=== PATIENT | female | born 1935 | race Caucasian/White ===

== ENCOUNTER 2017-02-06 08:18 | Inpatient (IN) | payer MEDICARE, BC ==
[2017-02-06] VITALS (7 sets, daily range): BP systolic 128–155; BP diastolic 59–90; PULSE 61–76; RESP 16–18; TEMP 97.7–99.6; O2SAT 97–100
[~2017-02-06] VITALS: Ht 162.6 cm; Wt 84.4 kg
[~2017-02-06 08:18] MED LIST: HYDR10FO PR; LISI-357 PO; SIMV20TA OR
[2017-02-06] MEDS ORDERED: ONDANSETRON HCL 4 MG/2 ML VIAL IV ONE (08:30)
[2017-02-06] MEDS ORDERED: HYDROmorphone HCL PF 1 MG/ML VIAL IVS ONE ×3 (08:30→10:30)
--- NOTE | 2017-02-06 08:41 | PD ---
HPI Chief Complaint: Fall Time Seen by Provider: 08:25 Travel History International Travel<30 days: No Contact w/Intl Traveler<30days: No History of Present Illness HPI Relatively well 81-year-old woman who presents to the emergency department via EMS after trip and fall complaining of pain and deformity to left wrist, severe pain in the left hip, and a small abrasion to her left face. She otherwise is fairly healthy. She is a history of hypertension. She's had right shoulder surgery in the past. She is not on any blood thinners. No LOC. She otherwise had been feeling generally well and healthy prior to this. History Past Medical History Narrative Medical Hypertension Menopausal: Yes Social History Alcohol Use: Yes (OCCASSIONAL) Tobacco Use: No Allergies-Medications (Allergen,Severity, Reaction): Coded Allergies: No Known Allergies (Verified , 03/20/14) Reported Meds & Prescriptions Reported Meds & Active Scripts Active Proctofoam Hc Rectal Foam (Hydrocortisone/Pramoxine) 10 Applic/10 Gm Foam 10 Applic GA BID Reported Lisinopril 5 Mg Tab 5 Mg PO DAILY Simvastatin 20 Mg Tab 20 Mg OR HS Review of Systems Except as stated in HPI: all other systems reviewed are Neg Physical Exam Narrative GENERAL: 81 year-old woman, appears uncomfortable, on a scoop stretcher. SKIN: Focused skin assessment warm/dry. HEAD: Normocephalic. 2 small very superficial cuts to the left brow. No other obvious head injury. EYES: Pupils equal and round. No scleral icterus. No injection or drainage. ENT: No nasal bleeding or discharge. Mucous membranes pink and moist. NECK: No midline tenderness. Full range of motion. CARDIOVASCULAR: Regular rate and rhythm. No murmur appreciated. RESPIRATORY: No accessory muscle use. Clear to auscultation. Breath sounds equal bilaterally. GASTROINTESTINAL: Abdomen soft, non-tender, nondistended. Hepatic and splenic margins not palpable. MUSCULOSKELETAL: She has obvious deformity and swelling to the left wrist with volar displacement of the distal section. She has pain with palpation of the wrist. She also has severe pain in the left leg rate from the hip down to the knee. She holds left knee flexed. She resists any attempt to move the hip or the knee. There is no obvious pain with palpation of the knee or deformity or ecchymosis the knee itself. The ankle is unremarkable. NEUROLOGICAL: Awake and alert. No obvious cranial nerve deficits. Motor grossly within normal limits. Normal speech. PSYCHIATRIC: Appropriate mood and affect; insight and judgment normal. Data Data Last Documented VS Vital Signs Date Time Temp Pulse Resp B/P Pulse Ox O2 Delivery O2 Flow Rate FiO2 02/06/17 09:30 100 02/06/17 09:30 100 02/06/17 08:48 62 18 Room Air 02/06/17 08:48 149/90 02/06/17 08:44 97.7 Orders Hydromorphone Pf Inj (Dilaudid Pf Inj) (02/06/17 08:30) Ondansetron Inj (Zofran Inj) (02/06/17 08:30) Electrocardiogram (02/06/17 08:35) Complete Blood Count With Diff (02/06/17 08:35) Comprehensive Metabolic Panel (02/06/17 08:35) Prothrombin Time / Inr (Pt) (02/06/17 08:35) Act Partial Throm Time (Ptt) (02/06/17 08:35) Urinalysis - C+S If Indicated (02/06/17 08:35) Type And Screen (02/06/17 08:35) Chest, Single Ap (02/06/17 08:35) Iv Access Insert/Monitor (02/06/17 08:35) Urinary Catheter Insert/Apply (02/06/17 08:35) Oximetry (02/06/17 08:35) [employer] Request For Service (02/06/17 08:35) Ecg Monitoring (02/06/17 08:35) Sodium Chloride 0.9% Flush (Ns Flush) (02/06/17 08:45) Diet Npo (02/06/17 Breakfast) Wrist, Limited (Ap&Lat) (02/06/17 ) Ct Brain W/O Iv Contrast(Rout) (02/06/17 ) Propofol 200 Mg/20 Ml Inj (Diprivan 200 (02/06/17 09:00) Hip, Uni(Ap&Lat) Wo Ap Pelvis (02/06/17 ) Pelvis, Ap Only (Routine) (02/06/17 ) Femur, One View (02/06/17 08:35) Wrist, Limited (Ap&Lat) (02/06/17 ) Ct Cerv Spine W/O Contrast (02/06/17 ) Hydromorphone Pf Inj (Dilaudid Pf Inj) (02/06/17 10:15) Admit Order (Ed Use Only) (02/06/17 ) Sodium Chlor 0.9% 1000 Ml Inj (Ns 1000 M (02/06/17 11:00) Vital Signs (Adult) SHUKRI.Q4H (02/06/17 10:12) Consult Orthopedic (02/06/17 ) Hydromorphone Pf Inj (Dilaudid Pf Inj) (02/06/17 10:15) Ondansetron Inj (Zofran Inj) (02/06/17 10:15) Labs Laboratory Tests Test 02/06/17 08:40 White Blood Count 5.4 TH/MM3 Red Blood Count 4.84 MIL/MM3 Hemoglobin 14.5 GM/DL Hematocrit 42.9 % Mean Corpuscular Volume 88.6 FL Mean Corpuscular Hemoglobin 29.9 PG Mean Corpuscular Hemoglobin 33.8 % Concent Red Cell Distribution Width 13.3 % Platelet Count 186 TH/MM3 Mean Platelet Volume 9.4 FL Neutrophils (%) (Auto) 64.9 % Lymphocytes (%) (Auto) 22.5 % Monocytes (%) (Auto) 11.3 % Eosinophils (%) (Auto) 1.0 % Basophils (%) (Auto) 0.3 % Neutrophils # (Auto) 3.5 TH/MM3 Lymphocytes # (Auto) 1.2 TH/MM3 Monocytes # (Auto) 0.6 TH/MM3 Eosinophils # (Auto) 0.1 TH/MM3 Basophils # (Auto) 0.0 TH/MM3 CBC Comment DIFF FINAL Differential Comment Prothrombin Time 10.5 SEC Prothromb Time International 1.0 RATIO Ratio Activated Partial 26.9 SEC Thromboplast Time Sodium Level 144 MEQ/L Potassium Level 3.9 MEQ/L Chloride Level 109 MEQ/L Carbon Dioxide Level 26.5 MEQ/L Anion Gap 9 MEQ/L Blood Urea Nitrogen 16 MG/DL Creatinine 0.81 MG/DL Estimat Glomerular Filtration 68 ML/MIN Rate Random Glucose 133 MG/DL Calcium Level 8.7 MG/DL Total Bilirubin 0.6 MG/DL Aspartate Amino Transf 19 U/L (AST/SGOT) Alanine Aminotransferase 17 U/L (ALT/SGPT) Alkaline Phosphatase 79 U/L Total Protein 6.3 GM/DL Albumin 3.4 GM/DL Blood Type O NEGATIVE Antibody Screen NEGATIVE Blood Bank Comment MDM Medical Decision Making Medical Screen Exam Complete: Yes Emergency Medical Condition: Yes Interpretation(s) LABS: CBC is unremarkable. CMP is unremarkable. Coags unremarkable Left wrist x-ray: Impacted distal radius fracture for angulation of the distal fragment. Nondisplaced faintly seen distal ulna fracture. X-ray pelvis, left femur: Impacted femoral neck fracture on the left. CT head: 4 cm left frontal extra-axial mass with them for full calcification. 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 Associated mass effect and no midline shift. Recommend MRI brain with and without contrast. Differential Diagnosis Head injury, wrist fracture, hip fracture, femur fracture, other occult injury Narrative Course Medical decision making INITIAL cause an 81 year-old woman presents emergent arm on a trip and fall. She has obvious fracture to the left wrist, likely fracture to the left hip. She received 10 of morphine in route. She still in significant pain. She'll be given IV Dilaudid, Zofran, will check CT head, x-ray chest, left wrist, pelvis, left hip, left femur. She'll likely need sedation for reduction of the wrist, and placement of the hip in traction. We'll discuss with orthopedics following initial x-rays. Procedures Procedure Narrative After the risks and benefits were discussed the following procedure was performed: MODERATE SEDATION: The patient was placed on a nail assembly machine operator and pulse oximetry. An ambu bag and suction was immediately available at bedside. The patient was monitored by the nurse. Oxygen saturation, heart rate and blood pressure were monitored. Procedural sedation was acheived using 60 mg of propofol. The patient was observed until awake and alert. Procedural Sedation time in attendance was 15 minutes. Left wrist reduction: Following procedural sedation, axial traction and some direct pressure were used to reduce the left wrist. Sugar tong splint was placed. Repeat films were obtained. Diagnosis Primary Impression: Fracture of femoral neck, left, closed Qualified Code: S72.002A - Closed fracture of neck of left femur, initial encounter Additional Impression: Closed fracture of left distal radius and ulna Qualified Code: S52.502A - Closed fracture of left distal radius and ulna, initial encounter Admitting Information Admitting Physician Requests: Admit Isaac Gonzalez MD Feb 06, 2017 08:41 Admitting Information Admitting Physician Requests: Admit Isaac Gonzalez MD Feb 06, 2017 08:41
[2017-02-06] MEDS ORDERED: SODIUM CHLORIDE 0.9% FLUSH 10 ML FLUSH IVF PRN (08:45)
[2017-02-06 08:55] LABS: AUTOMATED NEUTROPHIL # 3.5 TH/MM3 (1.8-7.7); BASOPHIL % 0.3 % (0.0-2.0); EOSINOPHIL # 0.1 TH/MM3 (0-0.4); HEMATOCRIT 42.9 % (35.0-46.0); HEMO FLAGS DIFF FINAL; LYMPH % 22.5 % (9.0-44.0); LYMPHOCYTE # 1.2 TH/MM3 (1.0-4.8); MEAN CELL VOLUME 88.6 FL (80.0-100.0); MEAN CORPUSCULAR HEMOGLOBIN 29.9 PG (27.0-34.0); MEAN CORPUSCULAR HGB CONC 33.8 % (32.0-36.0); MONO % 11.3 % (0.0-8.0); NEUT % 64.9 % (16.0-70.0); PLATELET COUNT 186 TH/MM3 (150-450); RED BLOOD COUNT 4.84 MIL/MM3 (4.00-5.30); RED CELL DISTRIBUTION WIDTH 13.3 % (11.6-17.2); WHITE BLOOD COUNT 5.4 TH/MM3 (4.0-11.0)
[2017-02-06] MEDS ORDERED: PROPOFOL 200 MG/20 ML AMP IV ONE ×2 (09:00→09:21)
[2017-02-06 09:08] LABS: APTT (PATIENT) 26.9 SEC (24.3-30.1); PROTHROMBIN TIME - PATIENT 10.5 SEC (9.8-11.6)
[2017-02-06] MEDS ORDERED: ePHEDrine/NS 25 MG/5 ML SYR IV ONE (09:21)
[2017-02-06 09:22] LABS: ALKALINE PHOSPHATASE 79 U/L (45-117); ALT (GPT) 17 U/L (10-53); ANION GAP 9 MEQ/L (5-15); AST (GOT) 19 U/L (15-37); BICARBONATE 26.5 MEQ/L (21.0-32.0); BLOOD UREA NITROGEN 16 MG/DL (7-18); CHLORIDE 109 MEQ/L (98-107); GLOMERULAR FILTRATION RATE 68 ML/MIN (>89); POTASSIUM 3.9 MEQ/L (3.5-5.1); SODIUM (NA) 144 MEQ/L (136-145); TOTAL BILIRUBIN ADULT 0.6 MG/DL (0.2-1.0)
[2017-02-06] MEDS ORDERED: PHENYLEPH/NS 1000 MCG/10 ML SYR IV ONE (09:22)
[2017-02-06] MEDS ORDERED: LACTATED RINGER'S 1000 ML INJ 1,000 ML IV ONE (09:22)
[2017-02-06] MEDS ORDERED: ONDANSETRON HCL 4 MG/2 ML VIAL IV PUSH ONE (09:22)
--- NOTE | 2017-02-06 09:37 | RADRPT ---
EXAM DATE/TIME: 02/06/2017 09:02 [facility] COMPARISON: No previous studies available for comparison. INDICATIONS : Fall. Left wrist deformity. MEDICAL HISTORY : None. SURGICAL HISTORY : None. ENCOUNTER: Initial ACUITY: 1 day PAIN SCORE: 10/10 LOCATION: Left wrist FINDINGS: 2 views of the left wrist. Impacted fracture of the distal radius with 23 volar angulation of the di stal fragment. Approximately 8 mm bony overlap. Grossly nondisplaced distal ulnar fracture with faint longitudinal lucency through the distal ulna and 1 mm step off in the distal ulna 3 mm lateral to th e ulnar styloid. CONCLUSION: 1. Impacted distal radius fracture with volar angulation of the distal fragment. 2. Nondisplaced, faintly seen distal ulna fracture. Ed Guerra MD on February 06, 2017 at 9:32 Board Certified Radiologist. This report was verified electronically.
--- NOTE | 2017-02-06 09:40 | RADRPT ---
EXAM DATE/TIME: 02/06/2017 09:12 [facility] COMPARISON: No previous studies available for comparison. INDICATIONS : Fall. Left hip pain. MEDICAL HISTORY : None. SURGICAL HISTORY : None. ENCOUNTER: Initial ACUITY: 1 day PAIN SCORE: 10/10 LOCATION: Left hip FINDINGS: 3 views of the left femur. Impacted left femoral neck fracture. Mid to distal femur are intact. CONCLUSION: Impacted left femoral neck fracture. Ed Guerra MD on February 06, 2017 at 9:37 Board Certified Radiologist. This report was verified electronically.
--- NOTE | 2017-02-06 09:45 | RADRPT ---
EXAM DATE/TIME: 02/06/2017 09:12 [facility] COMPARISON: No previous studies available for comparison. INDICATIONS : Fall. Left hip pain. MEDICAL HISTORY : None. SURGICAL HISTORY : None. ENCOUNTER: Initial ACUITY: 1 day PAIN SCORE: 10/10 LOCATION: Left hip FINDINGS: Single AP view of the pelvis. Impacted left femoral neck fracture. Hip joint alignment within normal limits. CONCLUSION: Impacted left femoral neck fracture. Ed Guerra MD on February 06, 2017 at 9:40 Board Certified Radiologist. This report was verified electronically.
[2017-02-06] MEDS ORDERED: HYDROmorphone HCL PF 1 MG/ML VIAL IV PUSH PRN (10:15)
[2017-02-06] MEDS ORDERED: ONDANSETRON HCL 4 MG/2 ML VIAL IV PUSH PRN (10:15)
--- NOTE | 2017-02-06 10:42 | RADRPT ---
EXAM DATE/TIME: 02/06/2017 09:59 [facility] COMPARISON: No previous studies available for comparison. INDICATIONS : Patient had a fall today ,No Loss of contiousness, laceration to left side of head. RADIATION DOSE: 32.37 CTDIvol (mGy) MEDICAL HISTORY : Cardiovascular disease. Hypertension. SURGICAL HISTORY : Tonsillectomy. Appendectomy.Hysterectomy. ENCOUNTER: Initial ACUITY: 1 day PAIN SCALE: 5/10 LOCATION: cranial TECHNIQUE: Multiple contiguous axial images were obtained of the head. Using automated exposure control and adj ustment of the mA and/or kV according to patient size, radiation dose was kept as low as reasonably a chievable to obtain optimal diagnostic quality images. FINDINGS: CEREBRUM: There is a 4.3 x 3.4 cm mildly hyperdense extra axial mass with peripheral rim calcification in the l ateral right frontal region. There is resulting mass effect on the right frontal lobe. No vasogenic e sheri is seen. There is mass effect on the anterior horn of the right lateral ventricle. No midline sh ift. No evidence of acute hemorrhage. POSTERIOR FOSSA: The cerebellum and brainstem are intact. The 4th ventricle is midline. The cerebellopontine angle i s unremarkable. EXTRACRANIAL: The visualized portion of the orbits is intact. SKULL: The calvaria is intact. No evidence of skull fracture. CONCLUSION: 4 cm left frontal extra-axial mass with thin peripheral calcification. 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 There is associated mass effect but no midline shift. Recommen d MRI brain with and without contrast for further characterization. Ed Guerra MD on February 06, 2017 at 10:34 Board Certified Radiologist. This report was verified electronically.
[2017-02-06] MEDS: SODIUM CHLOR 0.9% 1000 ML INJ 1,000 ML IV SCH ×2 (11:00→17:02)
--- NOTE | 2017-02-06 11:00 | RADRPT ---
EXAM DATE/TIME: 02/06/2017 10:35 [facility] COMPARISON: WRIST LEFT LIMITED (AP & LAT), February 06, 2017, 9:02. INDICATIONS : Post reduction. MEDICAL HISTORY : None. SURGICAL HISTORY : None. ENCOUNTER: Subsequent ACUITY: 1 day PAIN SCORE: 10/10 LOCATION: Left Wrist FINDINGS: There is closed reduction of the comminuted fracture of the distal radius with buddhist of anatomi c alignment. Fiberglas cast is in place. CONCLUSION: 1. Uncomplicated reduction Yonathan Pereira MD on February 06, 2017 at 10:58 Board Certified Radiologist. This report was verified electronically.
--- NOTE | 2017-02-06 11:03 | RADRPT ---
EXAM DATE/TIME: 02/06/2017 10:32 [facility] COMPARISON: CHEST SINGLE AP, February 25, 2011, 13:44. INDICATIONS : Shortness of breath. MEDICAL HISTORY : Cardiovascular disease. Hypertension SURGICAL HISTORY : Tonsillectomy. Appendectomy. Hysterectomy. ENCOUNTER: Subsequent ACUITY: 1 day PAIN SCORE: 1/10 LOCATION: Bilateral chest FINDINGS: A single view of the chest demonstrates the lungs to be symmetrically aerated without evidence of mas s, infiltrate or effusion. There is a subtle nodular density at the right second costochondral juncti on. This is not felt to relate to parenchymal nodule. The heart is mildly enlarged. An old right milagros ral neck fracture with orthopedic plate. CONCLUSION: No acute disease. Neftaly Tyson Jr., MD on February 06, 2017 at 10:57 Board Certified Radiologist. This report was verified electronically.
--- NOTE | 2017-02-06 11:12 | RADRPT ---
EXAM DATE/TIME: 02/06/2017 09:59 [facility] COMPARISON: No previous studies available for comparison. INDICATIONS : Patient fell today , no loss of constiousness, laceration to left side of head RADIATION DOSE: 20.47 CTDIvol (mGy) MEDICAL HISTORY : Hypertension. Cardiovascular disease SURGICAL HISTORY : Appendectomy. Hysterectomy.Tonsillectomy. ENCOUNTER: Initial ACUITY: 1 day PAIN SCALE: 10/10 LOCATION: neck TECHNIQUE: Volumetric scanning of the cervical spine was performed. Multiplanar reconstructions in the sagittal, coronal and oblique axial planes were performed. Using automated exposure control and adjustment o f the mA and/or kV according to patient size, radiation dose was kept as low as reasonably achievable to obtain optimal diagnostic quality images. FINDINGS: VERTEBRAE: No evidence of fracture. ALIGNMENT: 2 mm anterolisthesis C2 on C3. 2 mm anterolisthesis C7 on T1. C2-C3: Bilateral facet arthrosis. Shallow central disc protrusion. Mild central canal narrowing. Neural fora kelly diameters within normal limits. C3-C4: Broad-based disc bulge and bilateral facet arthrosis. Mild central canal narrowing. Mild left neural foraminal narrowing. C4-C5: Broad-based disc osteophyte complex and bilateral facet arthrosis. Mild central canal narrowing. Mild right neural foraminal narrowing. C5-C6: Broad-based disc osteophyte complex. Mild to moderate central canal narrowing. Mild to moderate bilat eral neural foraminal narrowing. C6-C7: Broad-based disc bulge. Bilateral facet arthrosis. Moderate to severe left neural foraminal narrowing . Moderate right neural foraminal narrowing. Mild central canal narrowing. C7-T1: Bilateral facet arthrosis. No evidence of focal disc protrusion. Central canal normal diameter. Neura l foraminal diameters within normal limits. CONCLUSION: No evidence of fracture. Multilevel degenerative findings. Ed Guerra MD on February 06, 2017 at 11:00 Board Certified Radiologist. This report was verified electronically.
--- NOTE | 2017-02-06 11:16 | RADRPT ---
EXAM DATE/TIME: 02/06/2017 09:12 [facility] COMPARISON: PELVIS AP ONLY, February 06, 2017, 9:12. INDICATIONS : Fall MEDICAL HISTORY : Cardiovascular disease. SURGICAL HISTORY : None. ENCOUNTER: Subsequent ACUITY: 1 day PAIN SCORE: 10/10 LOCATION: Left Hip FINDINGS: 2 views left hip. Left femoral neck fracture again seen. Hip joint alignment within normal limits. Sm all left hip osteophytes. CONCLUSION: Left femoral neck fracture. Ed Guerra MD on February 06, 2017 at 11:12 Board Certified Radiologist. This report was verified electronically.
[2017-02-06] MEDS ORDERED: NEOSTIGMINE 3 MG/3 ML SYR IV ONE (12:00)
[2017-02-06] MEDS ORDERED: LISI-519 PO (12:49)
[2017-02-06] MEDS ORDERED: SIMV20TA PO (12:49)
--- NOTE | 2017-02-06 12:57 | HHI.HP ---
[facility] Em Pham MD Admission Diagnosis left femoral neck fracture, left distal radius, ulna fracture Diagnoses: (1) Fracture of femoral neck, left, closed (2) Closed fracture of left distal radius and ulna Chief Complaint: fall Travel History International Travel<30 Days: No Contact w/Intl Traveler <30 Da: No Traveled to Known Affected Are: No History of Present Illness patient is a 81 y/o female with history of hypertension and dyslipidemia who was brought to ER after she fell earlier today. she says that she tripped and fell. she denies any prodromal symptoms before the fall including chest pain, sob, dizziness. she doesn't remember if she passed out. she's complaining of pain to the left leg and left wrist. Review of Systems Constitutional: DENIES: Fever, Weight loss, Chills, Night Sweats Eyes: DENIES: Blurred vision, Diplopia, Vision loss, Double Vision Ears, nose, mouth, throat: DENIES: Tinnitus, Vertigo, Throat pain, Epistaxis Respiratory: DENIES: Apneas, Cough, Snoring, Wheezing, Hemoptysis, Sputum production, Shortness of breath Cardiovascular: DENIES: Chest pain, Palpitations, Syncope, Dyspnea on Exertion , PND, Lower Extremity Edema, Orthopnea, Claudication Gastrointestinal: DENIES: Abdominal pain, Black stools, Bloody stools, Constipation, Diarrhea, Nausea, Vomiting, Difficulty Swallowing, Anorexia Genitourinary: DENIES: Urinary frequency, Urgency, Hematuria, Dysuria Musculoskeletal: COMPLAINS OF: Joint pain (left hip/ left wrist.), DENIES: Muscle aches, Stiffness, Joint Swelling Integumentary: DENIES: Rash Neurologic: DENIES: Abnormal gait, Headache, Localized weakness, Paresthesias, Seizures, Speech Problems, Tremor, Poor Balance Psychiatric: DENIES: Anxiety, Confusion, Mood changes, Depression, Hallucinations, Agitation, Suicidal Ideation, Homicidal Ideation, Delusions Past Family Social History Past Medical History hypertension dyslipidemia Past Surgical History hysterectomy Reported Medications lisinopril simvastatin Allergies: Coded Allergies: No Known Allergies (Verified , 02/06/17) Active Ordered Medications Current Medications Hydromorphone HCl (Dilaudid Pf Inj) 1 mg ONCE ONCE IVS Last administered on 08:30; Start 02/06/17 at 08:30; Stop 02/06/17 at 08:31; Status DC Ondansetron HCl (Zofran Inj) 4 mg ONCE ONCE IV Last administered on 02/06/17 08:30; Start 02/06/17 at 08:30; Stop 02/06/17 at 08:31; Status DC Sodium Chloride (NS Flush) 2 ml UNSCH PRN IVF FLUSH AFTER USING IV ACCESS; Start 02/06/17 at 08:45 Propofol (Diprivan 200 Mg/20 ml Inj) 200 mg ONCE ONCE IV Last administered on 02/06/17 09:00; Start 02/06/17 at 09:00; Stop 02/06/17 at 09:01; Status DC Hydromorphone HCl 1 mg 1 mg ONCE ONCE IVS ; Start 02/06/17 at 10:15; Stop 02/06 at 10:18; Status DC Sodium Chloride (NS 1000 ml Inj) 1,000 ml @ 75 mls/hr [id number] IV Last administered on 02/06/17 11:00; Start 02/06/17 at 11:00 Hydromorphone HCl (Dilaudid Pf Inj) 0.5 mg Q4H PRN IV PUSH PAIN; Start at 10:15 Ondansetron HCl (Zofran Inj) 4 mg Q8HR PRN IV PUSH NAUSEA; Start 02/06/17 at 10 :15 Hydromorphone HCl (Dilaudid Pf Inj) 0.5 mg ONCE ONCE IVS Last administered on 02/06/17 10:30; Start 02/06/17 at 10:30; Stop 02/06/17 at 10:31; Status DC Family History not relevant to this admission. Social History doesn't smoke.drinks occasionally. Physical Exam Vital Signs Vital Signs Date Time Temp Pulse Resp B/P Pulse Ox O2 Delivery O2 Flow Rate FiO2 02/06/17 12:23 62 18 155/69 100 Nasal Cannula 2 02/06/17 09:30 100 02/06/17 09:30 99 100 02/06/17 08:48 62 18 100 Room Air 02/06/17 08:48 63 18 149/90 99 Room Air 02/06/17 08:48 18 99 Room Air 02/06/17 08:44 97.7 61 18 149/90 100 Physical Exam GENERAL: This is a well-nourished, well-developed patient, in no apparent distress. SKIN: laceration noted on the left face HEAD: Atraumatic. Normocephalic. No temporal or scalp tenderness. EYES: Pupils equal round and reactive. Extraocular motions intact. No scleral icterus. No injection or drainage. ENT: Nose without bleeding, purulent drainage or septal hematoma. Throat without erythema, tonsillar hypertrophy or exudate. Uvula midline. Airway patent. NECK: Trachea midline. No JVD or lymphadenopathy. Supple, nontender, no meningeal signs. CARDIOVASCULAR: Regular rate and rhythm without murmurs, gallops, or rubs. RESPIRATORY: Clear to auscultation. Breath sounds equal bilaterally. No wheezes , rales, or rhonchi. GASTROINTESTINAL: Abdomen soft, non-tender, nondistended. No hepato-splenomegaly , or palpable masses. No guarding. MUSCULOSKELETAL:left lower extremity on traction/ left wrist covered with clean dressing. NEUROLOGICAL: Awake and alert. Cranial nerves II through XII intact. Motor and sensory grossly within normal limits. Five out of 5 muscle strength in all muscle groups. Normal speech. Laboratory Laboratory Tests Test 02/06/17 08:40 White Blood Count 5.4 Red Blood Count 4.84 Hemoglobin 14.5 Hematocrit 42.9 Mean Corpuscular Volume 88.6 Mean Corpuscular Hemoglobin 29.9 Mean Corpuscular Hemoglobin 33.8 Concent Red Cell Distribution Width 13.3 Platelet Count 186 Mean Platelet Volume 9.4 Neutrophils (%) (Auto) 64.9 Lymphocytes (%) (Auto) 22.5 Monocytes (%) (Auto) 11.3 Eosinophils (%) (Auto) 1.0 Basophils (%) (Auto) 0.3 Neutrophils # (Auto) 3.5 Lymphocytes # (Auto) 1.2 Monocytes # (Auto) 0.6 Eosinophils # (Auto) 0.1 Basophils # (Auto) 0.0 CBC Comment DIFF FINAL Differential Comment Prothrombin Time 10.5 Prothromb Time International 1.0 Ratio Activated Partial 26.9 Thromboplast Time Sodium Level 144 Potassium Level 3.9 Chloride Level 109 Carbon Dioxide Level 26.5 Anion Gap 9 Blood Urea Nitrogen 16 Creatinine 0.81 Estimat Glomerular Filtration 68 Rate Random Glucose 133 Calcium Level 8.7 Total Bilirubin 0.6 Aspartate Amino Transf 19 (AST/SGOT) Alanine Aminotransferase 17 (ALT/SGPT) Alkaline Phosphatase 79 Total Protein 6.3 Albumin 3.4 Blood Type O NEGATIVE Antibody Screen NEGATIVE Blood Bank Comment Result Diagram: 02/06/17 0840 02/06/17 0840 Imaging Last Impressions Femur X-Ray 02/06/1735 Signed Impressions: Service Date/Time: Monday, February 06, 2017 09:12 - CONCLUSION: Impacted left femoral neck fracture. Ed Guerra MD Chest X-Ray 02/06/1735 Signed Impressions: Service Date/Time: Monday, February 06, 2017 10:32 - CONCLUSION: No acute disease. Neftaly Tyson Jr., MD Wrist X-Ray 02/06/17 0000 Signed Impressions: Service Date/Time: Monday, February 06, 2017 10:35 - CONCLUSION: 1. Uncomplicated reduction Yonathan Pereira MD Pelvis X-Ray 02/06/17 0000 Signed Impressions: Service Date/Time: Monday, February 06, 2017 09:12 - CONCLUSION: Impacted left femoral neck fracture. Ed Guerra MD Hip X-Ray 02/06/17 0000 Signed Impressions: Service Date/Time: Monday, February 06, 2017 09:12 - CONCLUSION: Left femoral neck fracture. Ed Guerra MD Head CT 02/06/17 0000 Signed Impressions: Service Date/Time: Monday, February 06, 2017 09:59 - CONCLUSION: 4 cm left frontal extra-axial mass with thin peripheral calcification. Most likely etiology for this finding is meningioma. There is associated mass effect but no midline shift. Recommend MRI brain with and without contrast for further characterization. Ed Guerra MD Cervical Spine CT 02/06/17 0000 Signed Impressions: Service Date/Time: Monday, February 06, 2017 09:59 - CONCLUSION: No evidence of fracture. Multilevel degenerative findings. Ed Guerra MD Assessment and Plan Assessment and Plan A/P - left hip and wrist fracture after a fall NPO for now- start IV fluid- continue with pain control- ortho consulted -brain mass with mass effect; consult neurosurgery -hypertension; vasotec prn -dyslipidemia; resume home meds soon. -DVT prophylaxis- pending ortho evaluation Discussed Condition With the patient and ER physician. Physician Certification 2 Midnight Certification Type: Admission for Inpatient Services Order for Inpatient Services The services are ordered in accordance with Medicare regulations or non- Medicare payer requirements, as applicable. In the case of services not specified as inpatient-only, they are appropriately provided as inpatient services in accordance with the 2-midnight benchmark. Estimated LOS (days): 3 days is the estimated time the patient will need to remain in the hospital, assuming treatment plan goals are met and no additional complications. Post-Hospital Plan: Not yet determined Problem Qualifiers (1) Fracture of femoral neck, left, closed: Qualified Code: S72.002A - Closed fracture of neck of left femur, initial encounter (2) Closed fracture of left distal radius and ulna: Qualified Code: S52.502A - Closed fracture of left distal radius and ulna, initial encounter Mary Adams MD Feb 06, 2017 12:57
[2017-02-06] MEDS ORDERED: ENALAPRILAT 1.25 MG/ML VIAL IV PUSH PRN (13:15)
[2017-02-06 17:04] LABS: BLOOD, URINE NEG (NEG); COMMENT (UR) CATH-CULT NOT IND; CULTURE IF INDICATED CATH CULTURE NOT IND; GLUCOSE,URINE NEG (NEG); HYALINE CAST, URINE 1 /lpf (RARE); KETONE, URINE NEG (NEG); MUCUS URINE FEW /lpf (OCC); NITRITE,URINE NEG (NEG); PH, URINE 7.5 (5.0-8.5); URINE COLOR LIGHT-YELLOW (YELLW/STRAW)
--- NOTE | 2017-02-06 18:35 | PD.CONS ---
cc: Micah Meza MD HPI Service Orthopedic Surgeons Consult Requested By ED staff Reason for Consult Left wrist and hip fractures Primary Care Physician Em Pham MD Admission Diagnosis left femoral neck fracture, left distal radius, ulna fracture Diagnoses: (1) Fracture of femoral neck, left, closed (2) Closed fracture of left distal radius and ulna Chief Complaint: Left hip and wrist pain History of Present Illness This 81-year-old female who is in her normal state of good health fell earlier today on a sidewalk. Patient fell onto her left side and had immediate pain in the left hip and wrist with difficulty ambulating. The patient was brought to [facility]. X-rays revealed a left femoral neck fracture and a displaced left distal radius fracture. The patient underwent an attempted closed reduction in the emergency department by the staff with overall improvement but still displacement. She was admitted to the medical service with orthopedic consultation requested. The patient sustained a contusion of the left scalp region but denies loss of consciousness, headache, vision changes etc. Her and son are at the bedside. Review of Systems Reviewed and well outlined in the medical record Past Family Social History Past Medical History hypertension dyslipidemia Past Surgical History hysterectomy Allergies: Coded Allergies: No Known Allergies (Verified , 02/06/17) Active Ordered Medications Current Medications Medications (Trade) Dose Ordered Sig/Roger Route Start Time Stop Time Status Last Admin Sodium Chloride 2 ml 2 ml UNSCH PRN IVF 02/06/17 08:45 (NS 1000 ml Inj) 1,000 ml @ 75 mls/hr [id number] IV 02/06/17 11:00 02/06/17 17:02 (Dilaudid Pf Inj) 0.5 mg Q4H PRN IV PUSH 02/06/17 10:15 (Zofran Inj) 4 mg Q8HR PRN IV PUSH 02/06/17 10:15 (Vasotec Inj) 1.25 mg Q8H PRN IV PUSH 02/06/17 13:15 Reported Meds & Active Scripts Active Reported Simvastatin 20 Mg Tab 20 Mg PO HS Lisinopril 5 Mg Tab 5 Mg PO HS Family History not relevant to this admission. Social History doesn't smoke.drinks occasionally. Physical Exam Vital Signs Vital Signs Date Time Temp Pulse Resp B/P Pulse Ox O2 Delivery O2 Flow Rate FiO2 02/06/17 17:01 99.1 68 16 140/59 98 02/06/17 16:47 Nasal Cannula 2.00 02/06/17 15:24 76 18 128/69 99 Room Air 02/06/17 12:23 62 18 155/69 100 Nasal Cannula 2 02/06/17 09:30 100 02/06/17 09:30 99 100 02/06/17 08:48 62 18 100 Room Air 02/06/17 08:48 63 18 149/90 99 Room Air 02/06/17 08:48 18 99 Room Air 02/06/17 08:44 97.7 61 18 149/90 100 Physical Exam The patient is awake alert and answers questions appropriately. There is a small abrasion over the left temporal region. The left upper extremity is in a long-arm splint. She has a minimally restricted range of motion the fingers with good capillary refill and sensation. The left lower extremity is in traction. There is pain with any attempted range of motion of the hip. She moves her toes freely with good capillary refill and sensation. There are no other localizing signs of extremity injury. Laboratory Laboratory Tests Test 02/06/17 02/06/17 08:40 09:40 White Blood Count 5.4 Red Blood Count 4.84 Hemoglobin 14.5 Hematocrit 42.9 Mean Corpuscular Volume 88.6 Mean Corpuscular Hemoglobin 29.9 Mean Corpuscular Hemoglobin 33.8 Concent Red Cell Distribution Width 13.3 Platelet Count 186 Mean Platelet Volume 9.4 Neutrophils (%) (Auto) 64.9 Lymphocytes (%) (Auto) 22.5 Monocytes (%) (Auto) 11.3 Eosinophils (%) (Auto) 1.0 Basophils (%) (Auto) 0.3 Neutrophils # (Auto) 3.5 Lymphocytes # (Auto) 1.2 Monocytes # (Auto) 0.6 Eosinophils # (Auto) 0.1 Basophils # (Auto) 0.0 CBC Comment DIFF FINAL Differential Comment Prothrombin Time 10.5 Prothromb Time International 1.0 Ratio Activated Partial 26.9 Thromboplast Time Sodium Level 144 Potassium Level 3.9 Chloride Level 109 Carbon Dioxide Level 26.5 Anion Gap 9 Blood Urea Nitrogen 16 Creatinine 0.81 Estimat Glomerular Filtration 68 Rate Random Glucose 133 Calcium Level 8.7 Total Bilirubin 0.6 Aspartate Amino Transf 19 (AST/SGOT) Alanine Aminotransferase 17 (ALT/SGPT) Alkaline Phosphatase 79 Total Protein 6.3 Albumin 3.4 Blood Type O NEGATIVE Antibody Screen NEGATIVE Blood Bank Comment Urine Color LIGHT-YELLOW Urine Turbidity CLEAR Urine pH 7.5 Urine Specific [place] 1.007 Urine Protein NEG Urine Glucose (UA) NEG Urine Ketones NEG Urine Occult Blood NEG Urine Nitrite NEG Urine Bilirubin NEG Urine Urobilinogen LESS THAN 2.0 Urine Leukocyte Esterase NEG Urine RBC LESS THAN 1 Urine WBC 1 Urine Hyaline Casts 1 Urine Mucus FEW Microscopic Urinalysis Comment CATH-CULT NOT IND Result Diagram: 02/06/17 0840 02/06/17 0840 Imaging Last 48 hours Impressions Femur X-Ray 02/06/17 0835 Signed Impressions: Service Date/Time: Monday, February 06, 2017 09:12 - CONCLUSION: Impacted left femoral neck fracture. Ed Guerra MD Chest X-Ray 02/06/1735 Signed Impressions: Service Date/Time: Monday, February 06, 2017 10:32 - CONCLUSION: No acute disease. Neftaly Tyson Jr., MD Wrist X-Ray 02/06/17 0000 Signed Impressions: Service Date/Time: Monday, February 06, 2017 10:35 - CONCLUSION: 1. Uncomplicated reduction Yonathan Pereira MD Wrist X-Ray 02/06/17 0000 Signed Impressions: Service Date/Time: Monday, February 06, 2017 09:02 - CONCLUSION: 1. Impacted distal radius fracture with volar angulation of the distal fragment. 2. Nondisplaced, faintly seen distal ulna fracture. Ed Guerra MD Pelvis X-Ray 02/06/17 0000 Signed Impressions: Service Date/Time: Monday, February 06, 2017 09:12 - CONCLUSION: Impacted left femoral neck fracture. Ed Guerra MD Hip X-Ray 02/06/17 0000 Signed Impressions: Service Date/Time: Monday, February 06, 2017 09:12 - CONCLUSION: Left femoral neck fracture. Ed Guerra MD Head CT 02/06/17 0000 Signed Impressions: Service Date/Time: Monday, February 06, 2017 09:59 - CONCLUSION: 4 cm left frontal extra-axial mass with thin peripheral calcification. Most likely etiology for this finding is meningioma. There is associated mass effect but no midline shift. Recommend MRI brain with and without contrast for further characterization. Ed Guerra MD Cervical Spine CT 02/06/17 0000 Signed Impressions: Service Date/Time: Monday, February 06, 2017 09:59 - CONCLUSION: No evidence of fracture. Multilevel degenerative findings. Ed Guerra MD Assessment & Plan Problem List: (1) Closed fracture of left distal radius and ulna (2) Fracture of femoral neck, left, closed Assessment and Plan The findings were discussed with the patient, her son and . Recommendation given for prosthetic replacement of the left hip based upon the displaced femoral neck fracture. The other nonoperative alternatives as well as the other surgical treatment options were discussed. The patient's left wrist also would benefit from improved alignment. This may include closed reduction and possible open reduction and possible internal fixation. The risks and benefits of each were discussed at length. The nature of the planned surgical procedure, the risks, expected benefits, as well as the postoperative expectations were discussed with the patient, her son and in detail. In addition, the alternatives of the treatment and risks of same were discussed. They acknowledged full understanding and consent to it. Micah Meza MD Feb 06, 2017 18:35
[2017-02-06] MEDS ORDERED: ceFAZolin INJ 1,000 MG VIAL ONE (19:04)
[2017-02-06] MEDS ORDERED: INSULIN HUMAN REGULAR 1,000 UNITS/10 ML VIAL SQ PRN (19:15)
[2017-02-06] MEDS ORDERED: METOPROLOL TARTRATE 25 MG TAB PO PRN (19:15)
[2017-02-06] MEDS ORDERED: LACTATED RINGER'S 1000 ML IV SCH (19:15)
[2017-02-06] MEDS ORDERED: SODIUM CHLORID 0.9% 500 ML IV SCH (19:15)
[2017-02-06] MEDS ORDERED: ceFAZolin 2 GM PREMIX 50 ML ONE (20:46)
--- NOTE | 2017-02-06 22:42 | EKG ---
Date Performed: 02/06/2017 Time Performed: 11:43:54 PTAGE: 81 years EKG: SINUS BRADYCARDIA BORDERLINE ECG PREVIOUS TRACING : 02/25/2011 20.55 Compared to prior tracing no significant change DOCTOR: Za Cuellar Interpretating Date/Time 02/06/2017 22:40:29
[2017-02-06] MEDS ORDERED: GENTAMICIN SULFATE 80 MG/2 ML VIAL ONE (22:49)
[2017-02-06] MEDS ORDERED: MORPHINE SULFATE 4 MG/ML INJ ONE (22:50)
[2017-02-06] MEDS ORDERED: fentaNYL CITRATE 250 MCG/5 ML AMP ONE (22:50)
[2017-02-06] MEDS ORDERED: GENTAMICIN SULFATE 80 MG/2 ML VIAL IRRIGATION ONE (22:58)
--- NOTE | 2017-02-07 00:36 | PD.OP ---
cc: Micah Meza MD Operative Report Date of Surgery: Feb 06, 2017 Preoperative Diagnosis: (1) Closed fracture of left distal radius and ulna (2) Fracture of femoral neck, left, closed Postoperative Diagnosis: (1) Fracture of femoral neck, left, closed (2) Acosta's fracture of distal radius, closed Procedure: 1. Left bipolar hip arthroplasty 2. ORIF left distal radius with volar plating Implants used: Depuy Corail 12 femoral stem, 49 bipolar cup with a standard neck Synthes volar wrist plate Anesthesia: Gen. Surgeon: Micah Meza Home Appliances Mechanic(s): Bessy Hinton PA-C (Ashley) The surgical procedure was assisted by my physician's emergency veterinary assistant. Her presence was necessary throughout the case for manipulation and positioning of the surgical extremity. My PA was assisting me throughout the duration of this procedure. The skill set of the physician emergency veterinary assistant was medically necessary to complete this procedure. During the surgical case the ophthalmic surgical assistant was working at the back table and the physician emergency veterinary assistant was directly assisting me. Operation and Findings: Indications: This 81-year-old female fell earlier today on her left side injuring her left wrist and hip. X-rays revealed a displaced left femoral neck fracture and a volar Acosta's fracture of the wrist. The patient underwent close reduction of the wrist in the emergency room without satisfactory alignment. Recommendation given for bipolar hip arthroplasty and possible ORIF of the wrist. Procedure and findings: The patient was taken to the operative suite and after undergoing an adequate level of general anesthesia was placed in the lateral decubitus position on the operating table. Preoperative antibiotics consisted of Ancef 2 g IV. The left lower extremity was then prepped and draped in usual sterile fashion with alcohol and Hibiclens. A standard posterior lateral approach the hip was made with incision centered over the greater trochanter. Its was carried down through skin and subcutaneous tense tissue with a knife. Hemostasis was obtained with cautery. The iliotibial band was identified distally and the gluteus tonie fascia proximally. These were split longitudinally. This brought the greater trochanteric bursa into view. There was soft tissue hematoma present. The bursa was partially excised. The short external rotators were released from the posterior aspect of the femur up to the level of the piriformis. This was tagged. The sciatic nerve was palpable in the depths of the wound and avoided. A T capsulotomy incision was made. A joint hemarthrosis was evacuated. Upon entering the hip joint is noted to be a comminuted fracture of the femoral neck. Comminuted fracture fragments were removed. The head was removed and sized on the back table. A trial bipolar cup was seated and a 49 selected. Attention was then focused on the proximal femur which was sequentially broached up to a size 12. A trial reduction was completed and the standard neck length gave the best range of motion and stability with equalization of limb lengths. These components were therefore selected. The wound was thoroughly irrigated with pulse lavage. The size 12 Corail stem was then impacted in the place. The bipolar head was then impacted onto the proximal aspect of the stem with a Moreno taper fit. Reduction was then easily accomplished and good range of motion and stability again noted. The wound was again thoroughly irrigated. It was closed in layers utilizing #1 Tycron the posterior capsule, #1 Vicryl on the iliotibial band and gluteus tonie fascia, 0 Vicryl suture deep tissue, 2-0 Vicryl suture in subcutaneous tense tissue and chelita on the skin. Sterile dressings were applied the patient was placed into an abduction pillow and positioned in the supine position on the operating table. Attention was then focused on the left upper extremity. The splint was removed. Examination under fluoroscopy revealed a very unstable fracture pattern. The fracture could be held reduced with manual traction and dorsal manipulation however was quite unstable and therefore it was elected to proceed with ORIF. The left upper extremity was prepped and draped in usual sterile fashion with alcohol and Hibiclens. A standard FCR approach was made to the distal radius. Incision was made carried through the skin and subcutaneous tense tissue. The peritenon of the flexor carpi radialis was identified and split longitudinally. The flexor carpi radialis was then retracted ulnarly. The neurovascular bundle was avoided radially. The pronator sheath was incised after incising the floor of the flexor carpi radialis tendon. The pronator was partially torn and subcutaneous periosteal dissection carried out exposing the fracture site. Patient had a large volar fragment. A Synthes plate was then applied. A single cortical screw was placed into the oblong hole of the plate to allow for positioning. K wires were then placed distally for the positioning to avoid the intra-articular placement of screws. Once the position of the plate was determined the cortical screw was tightened. Distal locking screws were placed in a standard fashion. 2 additional cortical screws were then placed proximal. The position of the fracture reduction and placement of the internal fixation were checked in both the AP and lateral planes with the C-arm. The wound was then thoroughly irrigated. Was closed in layers utilizing 2-0 Vicryl suture and the subcutaneous tense tissue and 4-0 nylon on the skin. Sterile dressings were applied, the patient was placed into a sugar tong splint, awakened, transferred to the hospital bed and taken to the recovery room in stable condition. Estimated blood loss for the combined procedures approximate 150 cc Complications: None Micah Meza MD Feb 07, 2017 00:36
[2017-02-07] MEDS ORDERED: Post-op Orders (for Pharmacy) MISC XX ONE (00:41)
[2017-02-07] MEDS: LACTATED RINGER'S 1000 ML INJ 1,000 ML IV SCH ×2 (00:41→13:11)
[2017-02-07] MEDS ORDERED: MAGNESIUM HYDROXIDE SUSP 30 ML CUP PO PRN (00:45)
[2017-02-07] MEDS ORDERED: ONDANSETRON HCL 4 MG/2 ML VIAL IVP PRN (00:45)
[2017-02-07] MEDS ORDERED: ALUMINUM/MAGNESIUM/SIMETH 30 ML CUP PO PRN (00:45)
[2017-02-07] MEDS ORDERED: MORPHINE SULFATE 8 MG/ML INJ IV PUSH PRN (00:45)
[2017-02-07] MEDS ORDERED: POVIDONE IODINE 10% SOLN 118 ML BOTTLE TOPICAL PRN (00:45)
[2017-02-07] MEDS ORDERED: SODIUM CHLORIDE 0.9% FLUSH 10 ML FLUSH IV FLUSH PRN (00:45)
[2017-02-07] MEDS ORDERED: BISACODYL 10 MG SUPP PR PRN (00:45)
[2017-02-07] MEDS ORDERED: ACETAMINOPHEN 325 MG TAB PO PRN (00:45)
[2017-02-07] MEDS ORDERED: TEMAZEPAM 15 MG CAP PO PRN (00:45)
[2017-02-07] MEDS ORDERED: ceFAZolin 2 GM PREMIX 50 ML IV SCH (01:00)
--- NOTE | 2017-02-07 01:18 | RADRPT ---
EXAM DATE/TIME: 02/07/2017 00:04 [facility] COMPARISON: No previous studies available for comparison. INDICATIONS : ORIF Left wrist MEDICAL HISTORY : None. SURGICAL HISTORY : None. ENCOUNTER: Initial ACUITY: 1 day PAIN SCORE: Non-responsive. LOCATION: Left wrist FINDINGS: No postop changes of plate-screw fixation of the distal radius. Near-anatomic alignment. No complicat ions identified. CONCLUSION: 1. Postoperative fixation distal left radius. Dawson Torres MD on February 07, 2017 at 1:15 Board Certified Radiologist. This report was verified electronically.
[2017-02-07] MEDS ORDERED: MORPHINE SULFATE 4 MG/ML INJ ONE (01:35)
--- NOTE | 2017-02-07 02:09 | RADRPT ---
EXAM DATE/TIME: 02/07/2017 01:22 [facility] COMPARISON: HIP LEFT (AP&LAT 2/3VWS) WO AP PELVIS, February 06, 2017, 9:12. INDICATIONS : Post op total hip. MEDICAL HISTORY : None. SURGICAL HISTORY : None. ENCOUNTER: Subsequent ACUITY: 2 days PAIN SCORE: Non-responsive. LOCATION: Left pelvis FINDINGS: Postoperative left hip replacement. Skin chelita laterally. No complications identified. CONCLUSION: 1. Postoperative left hip replacement. Dawson Torres MD on February 07, 2017 at 2:07 Board Certified Radiologist. This report was verified electronically.
[2017-02-07 02:30] VITALS: BP 137/62; PULSE 75; RESP 16; TEMP 98.1; O2SAT 98
[2017-02-07] MEDS: ceFAZolin 2 GM PREMIX 50 ML IV SCH ×3 (02:59→16:10)
[2017-02-07] MEDS: oxyCODONE/ACETAMINOPHEN 5 MG/325 MG TAB PO PRN ×2 (04:20→20:43)
[2017-02-07 04:45] VITALS: BP 122/60; PULSE 83; RESP 17; TEMP 97.7; O2SAT 97
--- NOTE | 2017-02-07 07:31 | PD.ORT.PN ---
Subjective Subjective Remarks Patient sitting upright in bed, awake and alert, answering questions appropriately. Sling and abductor pillow in place. She admits her left hip and left wrist pain is well controlled. No other complaints at this time. Objective Vitals Vital Signs Date Time Temp Pulse Resp B/P Pulse Ox O2 Delivery O2 Flow Rate FiO2 02/07/17 04:45 97.7 83 17 122/60 97 02/07/17 02:30 98.1 75 16 137/62 98 02/07/17 02:17 Nasal Cannula 2.00 02/07/17 01:50 97.9 75 16 155/68 98 Nasal Cannula 2 02/07/17 01:30 71 16 150/74 99 Nasal Cannula 2 02/07/17 01:15 74 16 150/68 98 Nasal Cannula 2 02/07/17 01:00 77 16 139/71 96 Nasal Cannula 3 02/07/17 00:45 97.4 68 16 148/59 98 Nasal Cannula 3 02/06/17 20:15 99.6 73 17 142/60 97 02/06/17 17:01 99.1 68 16 140/59 98 02/06/17 16:47 Nasal Cannula 2.00 02/06/17 15:24 76 18 128/69 99 Room Air 02/06/17 12:23 62 18 155/69 100 Nasal Cannula 2 02/06/17 09:30 100 02/06/17 09:30 99 100 02/06/17 08:48 62 18 100 Room Air 02/06/17 08:48 63 18 149/90 99 Room Air 02/06/17 08:48 18 99 Room Air 02/06/17 08:44 97.7 61 18 149/90 100 I/O 02/06/17 02/06/17 02/06/17 02/07/17 02/07/17 02/07/17 07:00 15:00 23:00 07:00 15:00 23:00 Intake Total 0 ml 2120 ml Output Total 1000 ml 1150 ml Balance -1000 ml 970 ml Intake Oral 0 ml 120 ml IV Total 200 ml Other 1800 ml Output Urine Total 1000 ml 225 ml Estimated Blood Loss 250 ml Other 675 ml # Bowel Movements 0 0 Result Diagram: 02/06/17 0840 02/06/17 0840 Other Results Laboratory Tests Test 02/06/17 08:40 Prothrombin Time 10.5 SEC (9.8-11.6) Prothromb Time International 1.0 RATIO Ratio Imaging Last 48 hours Impressions Wrist X-Ray 02/07/17 Signed Impressions: Service Date/Time: Tuesday, February 07, 2017 00:04 - CONCLUSION: 1. Postoperative fixation distal left radius. Dawson Torres MD Hip X-Ray 02/07/17 Signed Impressions: Service Date/Time: Tuesday, February 07, 2017 01:22 - CONCLUSION: 1. Postoperative left hip replacement. Dawson Torres MD Femur X-Ray 02/06/1735 Signed Impressions: Service Date/Time: Monday, February 06, 2017 09:12 - CONCLUSION: Impacted left femoral neck fracture. Ed Guerra MD Chest X-Ray 02/06/1735 Signed Impressions: Service Date/Time: Monday, February 06, 2017 10:32 - CONCLUSION: No acute disease. Neftaly Tyson Jr., MD Wrist X-Ray 02/06/17 Signed Impressions: Service Date/Time: Monday, February 06, 2017 10:35 - CONCLUSION: 1. Uncomplicated reduction Yonathan Pereira MD Wrist X-Ray 02/06/17 Signed Impressions: Service Date/Time: Monday, February 06, 2017 09:02 - CONCLUSION: 1. Impacted distal radius fracture with volar angulation of the distal fragment. 2. Nondisplaced, faintly seen distal ulna fracture. Ed Guerra MD Pelvis X-Ray 02/06/17 Signed Impressions: Service Date/Time: Monday, February 06, 2017 09:12 - CONCLUSION: Impacted left femoral neck fracture. Ed Guerra MD Hip X-Ray 02/06/17 Signed Impressions: Service Date/Time: Monday, February 06, 2017 09:12 - CONCLUSION: Left femoral neck fracture. Ed Guerra MD Head CT 02/06/17 Signed Impressions: Service Date/Time: Monday, February 06, 2017 09:59 - CONCLUSION: 4 cm left frontal extra-axial mass with thin peripheral calcification. Most likely etiology for this finding is meningioma. There is associated mass effect but no midline shift. Recommend MRI brain with and without contrast for further characterization. Ed Guerra MD Cervical Spine CT 3/28/17 0000 Signed Impressions: Service Date/Time: Monday, February 06, 2017 09:59 - CONCLUSION: No evidence of fracture. Multilevel degenerative findings. Ed Guerra MD Procedures 1. Left bipolar hip arthroplasty, 2. ORIF left distal radius with volar plating (02/07/17) Objective Remarks LLE: Dressing dry and intact.Abductor pillow in place. Tender to palpation with mild swelling around incision site. Appropriate range of motion expected post operatively. Freely able to move knee and ankle. No calf pain. Negative Ebony's sign. Good cap refill. 2+ pedal pulses. Neurovascular intact. LUE: Sling and sugar tong splint dry and intact. Mild edema noted on all five digits distally. Ecchymosis noted, no change compared pre-operatively. Freely able to move all 5 digits freely. Good cap refill. Neurovascular intact. Assessment & Plan Ortho Post Op Day #: 1 Problem List: (1) Fracture of femoral neck, left, closed (2) Acosta's fracture of distal radius, closed (3) Closed fracture of left distal radius and ulna Assessment and Plan Left bipolar hip arthroplasty, ORIF left distal radius with volar plating POD #0 Ortho status stable. Progress rehab per protocol - W/B as tolerated LLE, non W/ B LUE. Continue Xarelto for DVT prophylaxis, pain control and bowel regimen. Discharge planning - patient expresses interest in rehab placement. Bessy Hinton Feb 07, 2017 07:31
[2017-02-07 08:00] VITALS: BP 114/54; PULSE 83; RESP 18; TEMP 97.3; O2SAT 91
[2017-02-07] MEDS: SODIUM CHLORIDE 0.9% FLUSH 10 ML FLUSH IV FLUSH SCH ×2 (09:00→20:36)
[2017-02-07] MEDS ORDERED: GADODIAMIDE PF 287 MG/ML 5 ML VIAL (for RAD MRI) IV ONE (09:28)
--- NOTE | 2017-02-07 09:47 | RADRPT ---
EXAM DATE/TIME: 02/07/2017 08:51 [facility] COMPARISON: CT BRAIN W/O CONTRAST, February 06, 2017, 9:59. INDICATIONS : Fall today. Abnormal CT. CONTRAST: 13 cc Omniscan (gadodiamide) IV MEDICAL HISTORY : Hypertension. Arthritis. SURGICAL HISTORY : Tonsillectomy. Hysterectomy. Right shoulder surgery. Left hip replacement. ENCOUNTER: Subsequent ACUITY: 1 day PAIN SCORE: 0/10 LOCATION: Head. TECHNIQUE: Multiplanar, multisequence MRI of the brain was performed both prior to and following the administrat ion of paramagnetic contrast. FINDINGS: There is a large dural based mass in the left Sylvian region that is intima associated with dura and does have small dural tails on each end. This does show intense contrast enhancement. This is spontaneously dense on the CT scan. Findings are most suggestive of a meningioma. Given the size there is very little local edema with this. This suggest that this is indeed is a slo w going process. There is however a second small component in the superior margin of the tumor that does extend toward s the left lateral ventricle across the internal capsule. This is where the most significant mass ef fect is. Periventricular white matter changes are seen in the right hemisphere. Posterior fossa is unremarkable. 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 This measures 4.2 cm. This wyman s have a reasonable pseudo capsule associated with it; however, in the superior margin this does have a small nodular protuberance that is directed towards the left lateral ventricle that appears not to have a pseudo capsule associated with it. No other significant lesions are identified. Eliceo Henning MD FACR on February 07, 2017 at 9:31 Board Certified Radiologist. This report was verified electronically.
--- NOTE | 2017-02-07 10:02 | HHI.PR ---
Subjective Remarks resting comfortably with no distress. pain is controlled. no new complaints. Objective Vitals Vital Signs Date Time Temp Pulse Resp B/P Pulse Ox O2 Delivery O2 Flow Rate FiO2 02/07/17 08:00 97.3 83 18 114/54 91 02/07/17 04:45 97.7 83 17 122/60 97 02/07/17 02:30 98.1 75 16 137/62 98 02/07/17 02:17 Nasal Cannula 2.00 02/07/17 01:50 97.9 75 16 155/68 98 Nasal Cannula 2 02/07/17 01:30 71 16 150/74 99 Nasal Cannula 2 02/07/17 01:15 74 16 150/68 98 Nasal Cannula 2 02/07/17 01:00 77 16 139/71 96 Nasal Cannula 3 02/07/17 00:45 97.4 68 16 148/59 98 Nasal Cannula 3 02/06/17 20:15 99.6 73 17 142/60 97 02/06/17 17:01 99.1 68 16 140/59 98 02/06/17 16:47 Nasal Cannula 2.00 02/06/17 15:24 76 18 128/69 99 Room Air 02/06/17 12:23 62 18 155/69 100 Nasal Cannula 2 I/O 02/06/17 02/06/17 02/06/17 02/07/17 02/07/17 02/07/17 07:00 15:00 23:00 07:00 15:00 23:00 Intake Total 0 ml 2120 ml Output Total 1000 ml 1150 ml Balance -1000 ml 970 ml Intake Oral 0 ml 120 ml IV Total 200 ml Other 1800 ml Output Urine Total 1000 ml 225 ml Estimated Blood Loss 250 ml Other 675 ml # Bowel Movements 0 0 Result Diagram: 02/06/17 0840 02/06/17 0840 Imaging Last Impressions Wrist X-Ray 02/07/17 0000 Signed Impressions: Service Date/Time: Tuesday, February 07, 2017 00:04 - CONCLUSION: 1. Postoperative fixation distal left radius. Dawson Torres MD Hip X-Ray 02/07/17 0000 Signed Impressions: Service Date/Time: Tuesday, February 07, 2017 01:22 - CONCLUSION: 1. Postoperative left hip replacement. Dawson Torres MD Femur X-Ray 3/28/17 0835 Signed Impressions: Service Date/Time: Monday, February 06, 2017 09:12 - CONCLUSION: Impacted left femoral neck fracture. Ed Guerra MD Chest X-Ray 02/06/17834 Signed Impressions: Service Date/Time: Monday, February 06, 2017 10:32 - CONCLUSION: No acute disease. Neftaly Tyson Jr., MD Pelvis X-Ray 02/06/17 Signed Impressions: Service Date/Time: Monday, February 06, 2017 09:12 - CONCLUSION: Impacted left femoral neck fracture. Ed Guerra MD Head CT 02/06/17 Signed Impressions: Service Date/Time: Monday, February 06, 2017 09:59 - CONCLUSION: 4 cm left frontal extra-axial mass with thin peripheral calcification. Most likely etiology for this finding is meningioma. There is associated mass effect but no midline shift. Recommend MRI brain with and without contrast for further characterization. Ed Guerra MD Cervical Spine CT 02/06/17 Signed Impressions: Service Date/Time: Monday, February 06, 2017 09:59 - CONCLUSION: No evidence of fracture. Multilevel degenerative findings. Ed Guerra MD Objective Remarks GENERAL: This is a well-nourished, well-developed patient, in no apparent distress. CARDIOVASCULAR: Regular rate and regular rhythm without murmurs, gallops, or rubs. RESPIRATORY: Clear to auscultation. Breath sounds equal bilaterally. No wheezes , rales, or rhonchi. GASTROINTESTINAL: Abdomen soft, non-tender, nondistended. Normal, active bowel sounds MUSCULOSKELETAL: Extremities without clubbing, cyanosis, or edema. NEURO: Alert & Oriented x4 to person, place, time, situation. Moves all ext x4 Procedures ORIF left wrist fracture left bipolar hip arthroplasty Medications and IVs Current Medications Hydromorphone HCl (Dilaudid Pf Inj) 1 mg ONCE ONCE IVS Last administered on 08:30; Start 02/06/17 at 08:30; Stop 02/06/17 at 08:31; Status DC Ondansetron HCl (Zofran Inj) 4 mg ONCE ONCE IV Last administered on 02/06/17 08:30; Start 02/06/17 at 08:30; Stop 02/06/17 at 08:31; Status DC Sodium Chloride (NS Flush) 2 ml UNSCH PRN IVF FLUSH AFTER USING IV ACCESS; Start 02/06/17 at 08:45 Propofol (Diprivan 200 Mg/20 ml Inj) 200 mg ONCE ONCE IV Last administered on 02/06/17 09:00; Start 02/06/17 at 09:00; Stop 02/06/17 at 09:01; Status DC Hydromorphone HCl 1 mg 1 mg ONCE ONCE IVS ; Start 02/06/17 at 10:15; Stop 02/06 at 10:18; Status DC Sodium Chloride (NS 1000 ml Inj) 1,000 ml @ 75 mls/hr [id number] IV Last administered on 02/06/17 17:02; Start 02/06/17 at 11:00; Stop 02/07/17 at 00:52 ; Status DC Hydromorphone HCl (Dilaudid Pf Inj) 0.5 mg Q4H PRN IV PUSH PAIN; Start at 10:15 Ondansetron HCl (Zofran Inj) 4 mg Q8HR PRN IV PUSH NAUSEA; Start 02/06/17 at 10 :15; Stop 02/07/17 at 00:52; Status DC Hydromorphone HCl (Dilaudid Pf Inj) 0.5 mg ONCE ONCE IVS Last administered on 02/06/17 10:30; Start 02/06/17 at 10:30; Stop 02/06/17 at 10:31; Status DC Enalaprilat (Vasotec Inj) 1.25 mg Q8H PRN IV PUSH SBP> OR = 180, DBP> OR = 100 ; Start 02/06/17 at 13:15 Cefazolin Sodium 2000 mg 2,000 mg STK-MED ONCE .ROUTE Last administered on 02/06 21:19; Start 02/06/17 at 19:04; Stop 02/06/17 at 19:05; Status DC Lactated Ringer's 1,000 ml @ 30 mls/hr Q24H IV Last administered on 02/06/17 19:15; Start 02/06/17 at 19:15; Stop 02/07/17 at 00:52; Status DC Sodium Chloride (NS 500 ml Inj) 500 ml @ 30 mls/hr [id number] IV ; Start 02/06/17 at 19:15; Stop 02/07/17 at 00:53; Status DC Insulin Human Regular (NovoLIN R INJ) See Protocol Table ... UNSCH X1 PRN SQ SEE PROTOCOL; Start 02/06/17 at 19:15; Stop 02/07/17 at 00:53; Status DC Metoprolol Tartrate 25 mg 25 mg UNSCH X1 PRN PO SEE LABEL COMMENTS; Start 02/06 at 19:15; Stop 02/07/17 at 00:53; Status DC Cefazolin Sodium/ Dextrose (Ancef 2 Gm Premix) 50 ml @ As Directed STK-MED ONCE .ROUTE Last administered on 02/06/17 20:52; Start 02/06/17 at 20:46; Stop at 20:47; Status DC Gentamicin Sulfate (Gentamicin Inj) 240 mg STK-MED ONCE .ROUTE ; Start 02/06/17 at 22:49; Stop 02/06/17 at 22:50; Status DC Morphine Sulfate (Morphine Inj) 4 mg STK-MED ONCE .ROUTE ; Start 02/06/17 at 22: 50; Stop 02/06/17 at 22:51; Status DC Fentanyl Citrate (fentaNYL INJ) 250 mcg STK-MED ONCE .ROUTE ; Start 02/06/17 at 22:50; Stop 02/06/17 at 22:51; Status DC Gentamicin Sulfate 240 mg 240 mg STK-MED ONCE IRRIGATION Last administered on 22:58; Start 02/06/17 at 22:58; Stop 02/06/17 at 23:03; Status DC Lactated Ringer's (Lr 1000 ml Inj) 1,000 ml @ 80 mls/hr [id number] IV Last administered on 02/07/17 00:41; Start 02/07/17 at 00:41 Sodium Chloride (NS Flush) 2 ml UNSCH PRN IV FLUSH FLUSH AFTER USING IV ACCESS ; Start 02/07/17 at 00:45 Sodium Chloride 2 ml 2 ml BID IV FLUSH ; Start 02/07/17 at 09:00 Cefazolin Sodium/ Dextrose (Ancef 2 Gm Premix) 50 ml @ 100 mls/hr Q6H IV ; Start 02/07/17 at 01:00; Stop 02/07/17 at 02:40; Status DC Miscellaneous Information (Post-op Orders (for Pharmacy)) STAT ONCE XX ; Start 02/07/17 at 00:41; Stop 02/07/17 at 00:52; Status DC Rivaroxaban (Xarelto) 10 mg Q24H PO ; Start 02/07/17 at 13:00 Morphine Sulfate (Morphine Inj) 4 mg Q3H PRN IV PUSH Pain >7 when off [employer]; Start 02/07/17 at 00:45 Oxycodone/ Acetaminophen (Percocet 5-325 Mg) 1 tab Q4H PRN PO PAIN LESS THAN 5 ON SCALE; Start 02/07/17 at 00:45 Oxycodone/ Acetaminophen (Percocet 5-325 Mg) 2 tab Q4H PRN PO PAIN SCALE 5 TO 10 Last administered on 02/07/17t 04:20; Start 02/07/17 at 00:45 Acetaminophen (Tylenol) 650 mg Q6H PRN PO TEMPERATURE > 101 F; Start 02/07/17 at 00:45 Multivitamins/ Minerals Therapeutic (Theragran M Tab) 1 tab BID PO ; Start 02/08 at 09:00; Stop 04/09/17 at 08:59 Ondansetron HCl (Zofran Inj) 4 mg Q6H PRN IVP NAUSEA OR VOMITING; Start at 00:45 Docusate Sodium (Colace) 100 mg BID PO ; Start 02/08/17 at 09:00 Al Hydrox/Mg Hydrox/Simethicone (Mag-Al Plus Susp Liq) 30 ml Q6H PRN PO INDIGESTION; Start 02/07/17 at 00:45 Temazepam (Restoril) 15 mg HS PRN PO SLEEP; Start 02/07/17 at 00:45 Bisacodyl (Dulcolax Supp) 10 mg DAILY PRN SD CONSTIPATION; Start 02/07/17 at 00 :45 Magnesium Hydroxide (Milk Of Magnesia Liq) 30 ml DAILY PRN PO CONSTIPATION; Start 02/07/17 at 00:45 Povidone Iodine (Betadine 10% Top Soln) 30 applic UNSCH X1 PRN TOPICAL WOUND CARE; Start 02/07/17 at 00:45; Stop 02/09/17 at 00:44 Morphine Sulfate 4 mg 4 mg STK-MED ONCE .ROUTE Last administered on 02/07/17 01:35; Start 02/07/17 at 01:35; Stop 02/07/17 at 01:36; Status DC Cefazolin Sodium/ Dextrose (Ancef 2 Gm Premix) 50 ml @ 100 mls/hr Q6H IV Last administered on 02/07/17 02:59; Start 02/07/17 at 03:00; Stop 02/07/17 at 15:29 Gadodiamide (Omniscan Pf Inj) 13 ml STK-MED ONCE IV Last administered on 09:28; Start 02/07/17 at 09:28; Stop 02/07/17 at 09:29; Status DC A/P Assessment and Plan A/P - left hip and wrist fracture after a fall s/p ORIF left wrist fracture and left bipolar hip arthroplasty. continue with pain control and PT- management per ortho. -large meningioma- neurosurgery consulted -hypertension; vasotec prn for now -dyslipidemia; resume home meds upon discharge. -DVT prophylaxis- on Xarelto- per ortho Mary Adams MD Feb 07, 2017 10:02
[2017-02-07 12:00] VITALS: BP 107/57; PULSE 76; RESP 18; TEMP 96.7; O2SAT 99
[2017-02-07] MEDS: RIVAROXABAN 10 MG TAB PO SCH (13:30)
--- NOTE | 2017-02-07 14:23 | MB ---
cc: RODRIGO SPARKS M.D., ROHIT K. M.D. DATE OF CONSULTATION: 02/07/2017 REASON FOR CONSULTATION Left frontoparietal lobe mass. HISTORY OF PRESENT ILLNESS An 81-year-old female who presented to the emergency room yesterday morning after a trip and fall where she struck the left side of her head along with her wrist and hip. She suffered a left femoral neck fracture along with a left distal radius and ulna fracture. She denies loss of consciousness. Trauma work-up undertaken included CT scan of the head which revealed a large left frontoparietal area dural-based mass with significant compression on the underlying brain and some slight areas of calcification. She underwent ORIF of her left radius and left femur fractures last evening. A CT of the cervical spine did not reveal any fractures. Subsequently this morning she also had an MRI scan of the brain with and without contrast which reveals a large left frontoparietal area dural-based mass which measures about 4.9 cm in dimension with compression of the underlying cortex and extension into the parenchyma and extending all the way adjacent to the left lateral frontal horn and body of the ventricle. No significant surrounding edema is noted, but the mass does seem to extend into the basal ganglia and possibly even the internal capsule. There is significant enhancement with contrast. She relates a chronic history of intermittent headaches in the vertex area over 10 years, but denies any numbness or paresthesias in the upper or lower extremities. She also fell a few years ago and required ORIF of the right upper extremity for fractures. PAST MEDICAL HISTORY 1. Hypertension. 2. Hyperlipidemia. 3. Hysterectomy. 4. Right upper extremity ORIF. 5. This admission left hip ORIF and left radius ORIF. REVIEW OF SYSTEMS Denies any numbness or paresthesias in the upper extremities. No history of seizures or stroke-like symptoms. Chronic intermittent headaches for several years, even decades. She has had multiple orthopedic injuries from falls, although does not reveal any unsteadiness in gait but does relate that because of the osteoarthritis she is not as steady with walking as she used to be. No numbness. No kadie incontinence. No history of easy bleeding or bruising. No fevers or chills. No hemoptysis. No history of cancer. MEDICATIONS Medications prior to admission: 1. Lisinopril 5 mg q.h.s. 2. Simvastatin 20 mg q.h.s. ALLERGIES No known drug allergies. SOCIAL HISTORY She is , resides with her . She has a son who is a Data Entry Manager. She is a former smoker and drinks alcohol on an occasional basis. LABORATORY STUDIES White blood cell count 5.4, hemoglobin 14.5, platelet count 186. PT 10.5, INR 1.0, PT 26.9. Sodium 144, potassium 3.9, BUN 16, creatinine 0.81, glucose 133. PHYSICAL EXAMINATION VITAL SIGNS: Temperature 97.3, pulse 83, respiratory rate 18, blood pressure 114/54. Oxygen saturations 97% on two liter nasal cannula. HEAD: She has abrasions on the scalpel in the left frontoparietal occipital areas. NECK: Supple with no guarding or rigidity. She does have some left periorbital ecchymosis. CHEST: Clear bilaterally. HEART: Regular rate and rhythm, normal S1, S2. ABDOMEN: Soft, nontender. EXTREMITIES: She has compression dressings on her left upper and left lower extremities with swelling distally in her fingers of the left hand. NEUROLOGIC: She is awake, alert, oriented x3. Pupils are equal and reactive. Extraocular muscles are intact. Face is symmetric. Tongue is midline. Motor strength of the right arm and leg is 5/5. Negative Babinski. The left arm cannot be assessed because of the fractures and the pressure dressing from the shoulder to the wrist. She does move her fingers and appreciates light touch sensation. In the left lower extremity similarly she will wiggle her toes but cannot lift the leg up because of pain, the fracture and surgery. Negative Babinski. Speech is fluent. IMPRESSION 1. Large left frontoparietal dural-based mass with significant compression of the underlying cortical and subcortical surface extending all the way down near the lateral ventricle. The finding is consistent with a meningioma. 2. Left radius and ulnar fractures, status post ORIF. 3. Left femur fracture, status post ORIF. 4. Hypertension. PLAN At this point will continue with recovery from her orthopedic injuries and surgery and she has also been placed on Xarelto for DVT prophylaxis. Once she has recuperated from these orthopedic surgeries and is off the anticoagulants then we will have a further discussion regarding resection of this large left frontoparietal lobe mass given the significant mass effect and the large size. I have reviewed the findings at length with the patient along with treatment options which include continued conservative management with observation versus surgical intervention, and also reviewed the MRI scan images with her. All her questions were answered and she is in agreement. Accordingly, she will follow-up with me once she has recuperated from her orthopedic injuries. MD PATRICE Cote/BENI /1:38 PM /1:54 PM
[2017-02-07 16:00] VITALS: BP 123/60; PULSE 87; RESP 18; TEMP 97.5; O2SAT 99
[2017-02-07 20:00] VITALS: BP 146/58; PULSE 103; RESP 16; TEMP 99.6; O2SAT 93
[2017-02-07] MEDS: PRAVASTATIN SOD 40 MG TAB PO SCH (20:36)
[2017-02-07] MEDS ORDERED: LISINOPRIL 5 MG TAB PO SCH (21:00)
[2017-02-08] VITALS: BP 106/52; PULSE 79; RESP 16; TEMP 98; O2SAT 93
[2017-02-08] MEDS: LACTATED RINGER'S 1000 ML INJ 1,000 ML IV SCH ×2 (00:38→14:11)
[2017-02-08 07:01] LABS: HEMATOCRIT 28.4 % (35.0-46.0); REVIEW FLAG FINAL
--- NOTE | 2017-02-08 08:07 | PD.ORT.PN ---
Subjective Post Op Day #: 2 Subjective Remarks Patient sitting upright in bed, awake and alert, answering questions appropriately. Sling and abductor pillow in place. She admits her left hip and left wrist pain is well controlled. She is ready to try walking today with PT. No other complaints at this time. Objective Vitals Vital Signs Date Time Temp Pulse Resp B/P Pulse Ox O2 Delivery O2 Flow Rate FiO2 02/08/17 00:00 98.0 79 16 106/52 93 02/07/17 20:00 99.6 103 16 146/58 93 02/07/17 16:00 97.5 87 18 123/60 99 02/07/17 12:00 96.7 76 18 107/57 99 I/O 02/07/17 02/07/17 02/07/17 02/08/17 02/08/17 02/08/17 07:00 15:00 23:00 07:00 15:00 23:00 Intake Total 2120 ml 1200 ml 240 ml 240 ml Output Total 1150 ml 300 ml 450 ml 1000 ml Balance 970 ml 900 ml -210 ml -760 ml Intake Oral 120 ml 1200 ml 240 ml 240 ml IV Total 200 ml Other 1800 ml Output Urine Total 225 ml 300 ml 450 ml 1000 ml Estimated Blood Loss 250 ml Other 675 ml # Bowel Movements 0 0 0 0 Result Diagram: 02/08/17 0612 02/06/17 0840 Imaging Last 48 hours Impressions Wrist X-Ray 02/07/17 0000 Signed Impressions: Service Date/Time: Tuesday, February 07, 2017 00:04 - CONCLUSION: 1. Postoperative fixation distal left radius. Dawson Torres MD Hip X-Ray 02/07/17 0000 Signed Impressions: Service Date/Time: Tuesday, February 07, 2017 01:22 - CONCLUSION: 1. Postoperative left hip replacement. Dawson Torres MD Femur X-Ray 02/06/17 0835 Signed Impressions: Service Date/Time: Monday, February 06, 2017 09:12 - CONCLUSION: Impacted left femoral neck fracture. Ed Guerra MD Chest X-Ray 02/06/17 0835 Signed Impressions: Service Date/Time: Monday, February 06, 2017 10:32 - CONCLUSION: No acute disease. Neftaly Tyson Jr., MD Wrist X-Ray 02/06/17 0000 Signed Impressions: Service Date/Time: Monday, February 06, 2017 10:35 - CONCLUSION: 1. Uncomplicated reduction Yonathan Pereira MD Wrist X-Ray 02/06/17 0000 Signed Impressions: Service Date/Time: Monday, February 06, 2017 09:02 - CONCLUSION: 1. Impacted distal radius fracture with volar angulation of the distal fragment. 2. Nondisplaced, faintly seen distal ulna fracture. Ed Guerra MD Pelvis X-Ray 02/06/17 0000 Signed Impressions: Service Date/Time: Monday, February 06, 2017 09:12 - CONCLUSION: Impacted left femoral neck fracture. Ed Guerra MD Hip X-Ray 02/06/17 0000 Signed Impressions: Service Date/Time: Monday, February 06, 2017 09:12 - CONCLUSION: Left femoral neck fracture. Ed Guerra MD Head CT 02/06/17 0000 Signed Impressions: Service Date/Time: Monday, February 06, 2017 09:59 - CONCLUSION: 4 cm left frontal extra-axial mass with thin peripheral calcification. Most likely etiology for this finding is meningioma. There is associated mass effect but no midline shift. Recommend MRI brain with and without contrast for further characterization. Ed Guerra MD Cervical Spine CT 02/06/17 0000 Signed Impressions: Service Date/Time: Monday, February 06, 2017 09:59 - CONCLUSION: No evidence of fracture. Multilevel degenerative findings. Ed Guerra MD Procedures 1. Left bipolar hip arthroplasty, 2. ORIF left distal radius with volar plating (02/07/17) Objective Remarks LLE: Dressing dry and intact.Abductor pillow in place. Tender to palpation with mild swelling around incision site. Appropriate range of motion expected post operatively. Freely able to move knee and ankle. No calf pain. Negative Ebony's sign. Good cap refill. 2+ pedal pulses. Neurovascular intact. LUE: Sling and sugar tong splint dry and intact. Mild edema noted on all five digits distally. Ecchymosis noted, no change compared pre-operatively. Freely able to move all 5 digits freely. Good cap refill. Neurovascular intact. Assessment & Plan Problem List: (1) Fracture of femoral neck, left, closed (2) Acosta's fracture of distal radius, closed (3) Closed fracture of left distal radius and ulna Assessment and Plan Left bipolar hip arthroplasty, ORIF left distal radius with volar plating POD #1 Ortho status stable. Progress rehab per protocol - W/B as tolerated LLE, non W/ B LUE. Use platform walker for ambulation. Continue Xarelto for DVT prophylaxis , pain control and bowel regimen. Discharge planning - patient will be ready for d/c to rehab tomorrow. Change dressing tomorrow morning before discharge - orders in chart. RN to d/c sutures and chelita 02/15/17, apply steri stripes. Follow up with orthopedics in 3 weeks. Bessy Hinton Feb 08, 2017 08:07
[2017-02-08 08:10] VITALS: BP 134/64; PULSE 84; RESP 17; TEMP 99.2; O2SAT 95
[2017-02-08] MEDS ORDERED: PLATMIS3 (08:11)
[2017-02-08] MEDS ORDERED: WALKER/ADULT/FO1 MIS (08:11)
[2017-02-08] MEDS: MULTIVITAMINS/MINERALS THERAPEUTIC TAB PO SCH ×2 (08:46→19:45)
[2017-02-08] MEDS: DOCUSATE SODIUM 100 MG CAP PO SCH ×2 (08:46→19:45)
[2017-02-08] MEDS: SODIUM CHLORIDE 0.9% FLUSH 10 ML FLUSH IV FLUSH SCH ×2 (08:49→19:45)
[2017-02-08] MEDS: oxyCODONE/ACETAMINOPHEN 5 MG/325 MG TAB PO PRN ×2 (09:14→13:32)
[2017-02-08 09:53] VITALS: O2SAT 95
--- NOTE | 2017-02-08 09:56 | HHI.PR ---
Subjective Remarks in no acute distress. pain is controlled. no new complaints. Objective Vitals Vital Signs Date Time Temp Pulse Resp B/P Pulse Ox O2 Delivery O2 Flow Rate FiO2 02/08/17 08:10 99.2 84 17 134/64 95 02/08/17 00:00 98.0 79 16 106/52 93 02/07/17 20:00 99.6 103 16 146/58 93 02/07/17 16:00 97.5 87 18 123/60 99 02/07/17 12:00 96.7 76 18 107/57 99 I/O 02/07/17 02/07/17 02/07/17 02/08/17 02/08/17 02/08/17 07:00 15:00 23:00 07:00 15:00 23:00 Intake Total 2120 ml 1200 ml 240 ml 240 ml Output Total 1150 ml 300 ml 450 ml 1000 ml Balance 970 ml 900 ml -210 ml -760 ml Intake Oral 120 ml 1200 ml 240 ml 240 ml IV Total 200 ml Other 1800 ml Output Urine Total 225 ml 300 ml 450 ml 1000 ml Estimated Blood Loss 250 ml Other 675 ml # Bowel Movements 0 0 0 0 Result Diagram: 02/08/17 0612 02/06/17 0840 Imaging Last Impressions Wrist X-Ray 02/07/17 0000 Signed Impressions: Service Date/Time: Tuesday, February 07, 2017 00:04 - CONCLUSION: 1. Postoperative fixation distal left radius. Dawson Torres MD Hip X-Ray 02/07/17 0000 Signed Impressions: Service Date/Time: Tuesday, February 07, 2017 01:22 - CONCLUSION: 1. Postoperative left hip replacement. 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 This measures 4.2 cm. This does have a reasonable pseudo capsule associated with it; however, in the superior margin this does have a small nodular protuberance that is directed towards the left lateral ventricle that appears not to have a pseudo capsule associated with it. No other significant lesions are identified. Eliceo Henning MD FACR Femur X-Ray 02/06/17 0835 Signed Impressions: Service Date/Time: Monday, February 06, 2017 09:12 - CONCLUSION: Impacted left femoral neck fracture. Ed Guerra MD Chest X-Ray 02/06/17 0835 Signed Impressions: Service Date/Time: Monday, February 06, 2017 10:32 - CONCLUSION: No acute disease. Neftaly Tyson Jr., MD Pelvis X-Ray 02/06/17 0000 Signed Impressions: Service Date/Time: Monday, February 06, 2017 09:12 - CONCLUSION: Impacted left femoral neck fracture. Ed Guerra MD Head CT 02/06/17 0000 Signed Impressions: Service Date/Time: Monday, February 06, 2017 09:59 - CONCLUSION: 4 cm left frontal extra-axial mass with thin peripheral calcification. Most likely etiology for this finding is meningioma. There is associated mass effect but no midline shift. Recommend MRI brain with and without contrast for further characterization. Ed Guerra MD Cervical Spine CT 02/06/17 0000 Signed Impressions: Service Date/Time: Monday, February 06, 2017 09:59 - CONCLUSION: No evidence of fracture. Multilevel degenerative findings. Ed Guerra MD Objective Remarks GENERAL: This is a well-nourished, well-developed patient, in no apparent distress. CARDIOVASCULAR: Regular rate and regular rhythm without murmurs, gallops, or rubs. RESPIRATORY: Clear to auscultation. Breath sounds equal bilaterally. No wheezes , rales, or rhonchi. GASTROINTESTINAL: Abdomen soft, non-tender, nondistended. Normal, active bowel sounds MUSCULOSKELETAL: left upper extremity covered with clean dressing. NEURO: Alert & Oriented x4 to person, place, time, situation. Moves all ext x4 Procedures ORIF left wrist fracture left bipolar hip arthroplasty Medications and IVs Current Medications Hydromorphone HCl (Dilaudid Pf Inj) 1 mg ONCE ONCE IVS Last administered on 08:30; Start 02/06/17 at 08:30; Stop 02/06/17 at 08:31; Status DC Ondansetron HCl (Zofran Inj) 4 mg ONCE ONCE IV Last administered on 02/06/17 08:30; Start 02/06/17 at 08:30; Stop 02/06/17 at 08:31; Status DC Sodium Chloride (NS Flush) 2 ml UNSCH PRN IVF FLUSH AFTER USING IV ACCESS; Start 02/06/17 at 08:45 Propofol (Diprivan 200 Mg/20 ml Inj) 200 mg ONCE ONCE IV Last administered on 02/06/17 09:00; Start 02/06/17 at 09:00; Stop 02/06/17 at 09:01; Status DC Hydromorphone HCl 1 mg 1 mg ONCE ONCE IVS ; Start 02/06/17 at 10:15; Stop 02/06 at 10:18; Status DC Sodium Chloride (NS 1000 ml Inj) 1,000 ml @ 75 mls/hr [id number] IV Last administered on 02/06/17 17:02; Start 02/06/17 at 11:00; Stop 02/07/17 at 00:52 ; Status DC Hydromorphone HCl (Dilaudid Pf Inj) 0.5 mg Q4H PRN IV PUSH PAIN; Start at 10:15 Ondansetron HCl (Zofran Inj) 4 mg Q8HR PRN IV PUSH NAUSEA; Start 02/06/17 at 10 :15; Stop 02/07/17 at 00:52; Status DC Hydromorphone HCl (Dilaudid Pf Inj) 0.5 mg ONCE ONCE IVS Last administered on 02/06/17 10:30; Start 02/06/17 at 10:30; Stop 02/06/17 at 10:31; Status DC Enalaprilat (Vasotec Inj) 1.25 mg Q8H PRN IV PUSH SBP> OR = 180, DBP> OR = 100 ; Start 02/06/17 at 13:15 Cefazolin Sodium 2000 mg 2,000 mg STK-MED ONCE .ROUTE Last administered on 02/06 21:19; Start 02/06/17 at 19:04; Stop 02/06/17 at 19:05; Status DC Lactated Ringer's 1,000 ml @ 30 mls/hr Q24H IV Last administered on 02/06/17 19:15; Start 02/06/17 at 19:15; Stop 02/07/17 at 00:52; Status DC Sodium Chloride (NS 500 ml Inj) 500 ml @ 30 mls/hr [id number] IV ; Start 02/06/17 at 19:15; Stop 02/07/17 at 00:53; Status DC Insulin Human Regular (NovoLIN R INJ) See Protocol Table ... UNSCH X1 PRN SQ SEE PROTOCOL; Start 02/06/17 at 19:15; Stop 02/07/17 at 00:53; Status DC Metoprolol Tartrate 25 mg 25 mg UNSCH X1 PRN PO SEE LABEL COMMENTS; Start 02/06 at 19:15; Stop 02/07/17 at 00:53; Status DC Cefazolin Sodium/ Dextrose (Ancef 2 Gm Premix) 50 ml @ As Directed STK-MED ONCE .ROUTE Last administered on 02/06/17 20:52; Start 02/06/17 at 20:46; Stop at 20:47; Status DC Gentamicin Sulfate (Gentamicin Inj) 240 mg STK-MED ONCE .ROUTE ; Start 02/06/17 at 22:49; Stop 02/06/17 at 22:50; Status DC Morphine Sulfate (Morphine Inj) 4 mg STK-MED ONCE .ROUTE ; Start 02/06/17 at 22: 50; Stop 02/06/17 at 22:51; Status DC Fentanyl Citrate (fentaNYL INJ) 250 mcg STK-MED ONCE .ROUTE ; Start 02/06/17 at 22:50; Stop 02/06/17 at 22:51; Status DC Gentamicin Sulfate 240 mg 240 mg STK-MED ONCE IRRIGATION Last administered on 22:58; Start 02/06/17 at 22:58; Stop 02/06/17 at 23:03; Status DC Lactated Ringer's (Lr 1000 ml Inj) 1,000 ml @ 80 mls/hr [id number] IV Last administered on 02/08/17 00:38; Start 02/07/17 at 00:41 Sodium Chloride (NS Flush) 2 ml UNSCH PRN IV FLUSH FLUSH AFTER USING IV ACCESS ; Start 02/07/17 at 00:45 Sodium Chloride 2 ml 2 ml BID IV FLUSH Last administered on 02/07/17 20:36; Start 02/07/17 at 09:00 Cefazolin Sodium/ Dextrose (Ancef 2 Gm Premix) 50 ml @ 100 mls/hr Q6H IV ; Start 02/07/17 at 01:00; Stop 02/07/17 at 02:40; Status DC Miscellaneous Information (Post-op Orders (for Pharmacy)) STAT ONCE XX ; Start 02/07/17 at 00:41; Stop 02/07/17 at 00:52; Status DC Rivaroxaban (Xarelto) 10 mg Q24H PO Last administered on 02/07/17 13:30; Start 02/07/17 at 13:00 Morphine Sulfate (Morphine Inj) 4 mg Q3H PRN IV PUSH Pain >7 when off X RAY EQUIPMENT TESTER; Start 02/07/17 at 00:45 Oxycodone/ Acetaminophen (Percocet 5-325 Mg) 1 tab Q4H PRN PO PAIN LESS THAN 5 ON SCALE Last administered on 02/08/17 09:14; Start 02/07/17 at 00:45 Oxycodone/ Acetaminophen (Percocet 5-325 Mg) 2 tab Q4H PRN PO PAIN SCALE 5 TO 10 Last administered on 02/07/17 20:43; Start 02/07/17 at 00:45 Acetaminophen (Tylenol) 650 mg Q6H PRN PO TEMPERATURE > 101 F; Start 02/07/17 at 00:45 Multivitamins/ Minerals Therapeutic (Theragran M Tab) 1 tab BID PO Last administered on 02/08/17 08:46; Start 02/08/17 at 09:00; Stop 04/09/17 at 08:59 Ondansetron HCl (Zofran Inj) 4 mg Q6H PRN IVP NAUSEA OR VOMITING; Start at 00:45 Docusate Sodium (Colace) 100 mg BID PO Last administered on 02/08/17 08:46; Start 02/08/17 at 09:00 Al Hydrox/Mg Hydrox/Simethicone (Mag-Al Plus Susp Liq) 30 ml Q6H PRN PO INDIGESTION; Start 02/07/17 at 00:45 Temazepam (Restoril) 15 mg HS PRN PO SLEEP; Start 02/07/17 at 00:45 Bisacodyl (Dulcolax Supp) 10 mg DAILY PRN MD CONSTIPATION; Start 02/07/17 at 00 :45 Magnesium Hydroxide (Milk Of Magnesia Liq) 30 ml DAILY PRN PO CONSTIPATION Last administered on 02/08/17 08:46; Start 02/07/17 at 00:45 Povidone Iodine (Betadine 10% Top Soln) 30 applic UNSCH X1 PRN TOPICAL WOUND CARE; Start 02/07/17 at 00:45; Stop 02/09/17 at 00:44 Morphine Sulfate 4 mg 4 mg STK-MED ONCE .ROUTE Last administered on 02/07/17 01:35; Start 02/07/17 at 01:35; Stop 02/07/17 at 01:36; Status DC Cefazolin Sodium/ Dextrose (Ancef 2 Gm Premix) 50 ml @ 100 mls/hr Q6H IV Last administered on 02/07/17 16:10; Start 02/07/17 at 03:00; Stop 02/07/17 at 15:29 ; Status DC Gadodiamide (Omniscan Pf Inj) 13 ml STK-MED ONCE IV Last administered on 09:28; Start 02/07/17 at 09:28; Stop 02/07/17 at 09:29; Status DC Pravastatin Sodium (Pravachol) 40 mg HS PO Last administered on 02/07/17 20:36 ; Start 02/07/17 at 21:00 Lisinopril (Prinivil) 5 mg HS PO ; Start 02/07/17 at 21:00; Stop 02/07/17 at 21: 00; Status DC Lisinopril (Prinivil) 5 mg HS PO ; Start 02/08/17 at 21:00 A/P Assessment and Plan A/P - left hip and wrist fracture after a fall s/p ORIF left wrist fracture and left bipolar hip arthroplasty. continue with pain control and PT- management per ortho. -large meningioma- neurosurgery consulted and recommended outpatient f/u -[id number]; will monitor for now -hypertension; resumed home meds -dyslipidemia; resumed home meds -DVT prophylaxis- on Xarelto- per ortho Discharge Planning dc to inpatient rehab tomorrow. f/u with pcp, ortho and neurosurgery upon discharge. Mary Adams MD Feb 08, 2017 09:56
--- NOTE | 2017-02-08 09:58 | HHI.DCPOC ---
Discharge Care Plan Diagnosis: (1) Cerebral convexity meningioma (2) Fracture of femoral neck, left, closed (3) Acosta's fracture of distal radius, closed Your Health Problems Are: Swelling Additional Problems pain. Goals to Promote Your Health * To prevent worsening of your condition and complications * To maintain your health at the optimal level Directions to Meet Your Goals Take your medications as prescribed Follow your dietary instruction Follow activity as directed Keep your appointments as scheduled Take your immunizations and boosters as scheduled If your symptoms worsen call your PCP, if no PCP go to Urgent Care Center or Emergency Room Smoking is Dangerous to Your Health. Avoid second hand smoke Call the 24-hour hour crisis hotline for domestic abuse at Mary Adams MD Feb 08, 2017 09:58
--- NOTE | 2017-02-08 09:59 | HHI.DS ---
Discharge Summary Admission Date Feb 06, 2017 at 10:16 Discharge Date: Feb 09, 2017 Admitting Diagnosis left femoral neck fracture, left distal radius, ulna fracture (1) Fracture of femoral neck, left, closed ICD Code: S72.002A Diagnosis: Principal (2) Closed fracture of left distal radius and ulna ICD Code: S52.502A Diagnosis: Principal (3) Cerebral convexity meningioma ICD Code: D32.0 Diagnosis: Secondary Procedures ORIF left wrist fracture left bipolar hip arthroplasty Brief History - From Admission patient is a 81 y/o female with history of hypertension and dyslipidemia who was brought to ER after she fell earlier today. she says that she tripped and fell. she denies any prodromal symptoms before the fall including chest pain, sob, dizziness. she doesn't remember if she passed out. she's complaining of pain to the left leg and left wrist. CBC/BMP: 02/08/17 0612 02/06/17 0840 Significant Findings Laboratory Tests Test 02/06/17 02/06/17 02/08/17 08:40 09:40 06:12 Monocytes (%) (Auto) 11.3 % (0.0-8.0) Chloride Level 109 MEQ/L (98-107) Estimat Glomerular Filtration 68 ML/MIN (>89) Rate Random Glucose 133 MG/DL (74-106) Total Protein 6.3 GM/DL (6.4-8.2) Urine Mucus FEW /lpf (OCC) Hemoglobin 9.8 GM/DL (11.6-15.3) Hematocrit 28.4 % (35.0-46.0) Imaging Last Impressions Wrist X-Ray 02/07/17 0000 Signed Impressions: Service Date/Time: Tuesday, February 07, 2017 00:04 - CONCLUSION: 1. Postoperative fixation distal left radius. Dawson Torres MD Hip X-Ray 02/07/17 0000 Signed Impressions: Service Date/Time: Tuesday, February 07, 2017 01:22 - CONCLUSION: 1. Postoperative left hip replacement. 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 This measures 4.2 cm. This does have a reasonable pseudo capsule associated with it; however, in the superior margin this does have a small nodular protuberance that is directed towards the left lateral ventricle that appears not to have a pseudo capsule associated with it. No other significant lesions are identified. Eliceo Henning MD FACR Femur X-Ray 02/06/17834 Signed Impressions: Service Date/Time: Monday, February 06, 2017 09:12 - CONCLUSION: Impacted left femoral neck fracture. Ed Guerra MD Chest X-Ray [id number]/06/[id number] Signed Impressions: Service Date/Time: Monday, February 06, 2017 10:32 - CONCLUSION: No acute disease. Neftaly Tyson Jr., MD Pelvis X-Ray 02/06/17 Signed Impressions: Service Date/Time: Monday, February 06, 2017 09:12 - CONCLUSION: Impacted left femoral neck fracture. Ed Guerra MD Head CT 02/06/17 0000 Signed Impressions: Service Date/Time: Monday, February 06, 2017 09:59 - CONCLUSION: 4 cm left frontal extra-axial mass with thin peripheral calcification. Most likely etiology for this finding is meningioma. There is associated mass effect but no midline shift. Recommend MRI brain with and without contrast for further characterization. Ed Guerra MD Cervical Spine CT 02/06/17 Signed Impressions: Service Date/Time: Monday, February 06, 2017 09:59 - CONCLUSION: No evidence of fracture. Multilevel degenerative findings. Ed Guerra MD PE at Discharge GENERAL: This is a well-nourished, well-developed patient, in no apparent distress. CARDIOVASCULAR: Regular rate and regular rhythm without murmurs, gallops, or rubs. RESPIRATORY: Clear to auscultation. Breath sounds equal bilaterally. No wheezes , rales, or rhonchi. GASTROINTESTINAL: Abdomen soft, non-tender, nondistended. Normal, active bowel sounds MUSCULOSKELETAL: left upper extremity covered with clean dressing. NEURO: Alert & Oriented x4 to person, place, time, situation. Moves all ext x4 Hospital Course - left hip and wrist fracture after a fall s/p ORIF left wrist fracture and left bipolar hip arthroplasty. continue with pain control and PT- management per ortho. -large meningioma- neurosurgery consulted and recommended outpatient f/u -[id number]; will monitor for now -hypertension; resumed home meds -dyslipidemia; resumed home meds -DVT prophylaxis- on Xarelto- per ortho Pt Condition on Discharge: Good Discharge Disposition: Rehab Inpatient Discharge Time: <= 30 minutes Discharge Instructions DIET: Follow Instructions for: Heart Healthy Diet Activities you can perform: Weight Bearing as Remy Activities to Avoid: Lifting/Bending Follow up Referrals: Appointment for Follow Up - 3 Months Orthopedics PCP Follow-up New Medications: Platform Walker Attachmen (Platform Walker Attachmen) 1 Mis Mis 1 EA .ROUTE DIRECTED #1 EA Walker/Adult/Folding (Walker/Adult/Folding) 1 Mis Mis 1 EA .ROUTE DIRECTED #1 Ref 0 EA Continued Medications: Lisinopril (Lisinopril) 5 Mg Tab 5 MG PO HS Blood Pressure Management #30 Ref 0 TAB Simvastatin (Simvastatin) 20 Mg Tab 20 MG PO HS Cholesterol Management #30 Ref 0 TAB Mary Adams MD Feb 08, 2017 09:59
[2017-02-08 12:23] VITALS: BP 130/68; PULSE 81; RESP 18; TEMP 98.4; O2SAT 96
[2017-02-08] MEDS: RIVAROXABAN 10 MG TAB PO SCH (12:58)
[2017-02-08 16:00] VITALS: BP 120/70; PULSE 79; RESP 18; TEMP 98; O2SAT 97
[2017-02-08] MEDS: PRAVASTATIN SOD 40 MG TAB PO SCH (19:45)
[2017-02-08 20:00] VITALS: BP 129/47; PULSE 97; RESP 16; TEMP 98.2; O2SAT 96
[2017-02-08] MEDS ORDERED: LISINOPRIL 5 MG TAB PO SCH (21:00)
[2017-02-09] VITALS: BP 121/46; PULSE 88; RESP 17; TEMP 98.9; O2SAT 95
[2017-02-09] MEDS: LACTATED RINGER'S 1000 ML INJ 1,000 ML IV SCH (02:41)
[2017-02-09 04:00] VITALS: BP 143/54; PULSE 84; RESP 16; TEMP 98.3; O2SAT 97
[2017-02-09] MEDS: oxyCODONE/ACETAMINOPHEN 5 MG/325 MG TAB PO PRN ×2 (05:49→10:57)
[2017-02-09 08:12] VITALS: BP 105/54; PULSE 73; RESP 18; TEMP 98.3; O2SAT 94
[2017-02-09] MEDS: SODIUM CHLORIDE 0.9% FLUSH 10 ML FLUSH IV FLUSH SCH (09:00)
[2017-02-09] MEDS: DOCUSATE SODIUM 100 MG CAP PO SCH (09:20)
[2017-02-09] MEDS: MULTIVITAMINS/MINERALS THERAPEUTIC TAB PO SCH (09:20)
--- NOTE | 2017-02-09 11:16 | HHI.PR ---
Subjective Remarks sitting on the chair with no distress. pain is controlled. no new complaints. family at the bedside. Objective Vitals Vital Signs Date Time Temp Pulse Resp B/P Pulse Ox O2 Delivery O2 Flow Rate FiO2 02/09/17 08:12 98.3 73 18 105/54 94 02/09/17 04:00 98.3 84 16 143/54 97 02/09/17 00:00 98.9 88 17 121/46 95 02/08/17 20:00 98.2 97 16 129/47 96 02/08/17 16:00 98.0 79 18 120/70 97 02/08/17 14:32 18 02/08/17 12:23 98.4 81 18 130/68 96 I/O 02/08/17 02/08/17 02/08/17 02/09/17 02/09/17 02/09/17 07:00 15:00 23:00 07:00 15:00 23:00 Intake Total 240 ml 980 ml 240 ml 240 ml Output Total 1000 ml Balance -760 ml 980 ml 240 ml 240 ml Intake Oral 240 ml 980 ml 240 ml 240 ml Output Urine Total 1000 ml # Voids 3 1 1 # Bowel Movements 0 1 0 Result Diagram: 02/08/17 0612 02/06/17 0840 Imaging Last Impressions Wrist X-Ray 02/07/17 0000 Signed Impressions: Service Date/Time: Tuesday, February 07, 2017 00:04 - CONCLUSION: 1. Postoperative fixation distal left radius. Dawson Torres MD Hip X-Ray 02/07/17 0000 Signed Impressions: Service Date/Time: Tuesday, February 07, 2017 01:22 - CONCLUSION: 1. Postoperative left hip replacement. 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 This measures 4.2 cm. This does have a reasonable pseudo capsule associated with it; however, in the superior margin this does have a small nodular protuberance that is directed towards the left lateral ventricle that appears not to have a pseudo capsule associated with it. No other significant lesions are identified. Eliceo Henning MD FACR Femur X-Ray 02/06/17 0835 Signed Impressions: Service Date/Time: Monday, February 06, 2017 09:12 - CONCLUSION: Impacted left femoral neck fracture. Ed Guerra MD Chest X-Ray 02/06/17 0835 Signed Impressions: Service Date/Time: Monday, February 06, 2017 10:32 - CONCLUSION: No acute disease. Neftaly Tyson Jr., MD Pelvis X-Ray 02/06/17 0000 Signed Impressions: Service Date/Time: Monday, February 06, 2017 09:12 - CONCLUSION: Impacted left femoral neck fracture. Ed Guerra MD Head CT 02/06/17 0000 Signed Impressions: Service Date/Time: Monday, February 06, 2017 09:59 - CONCLUSION: 4 cm left frontal extra-axial mass with thin peripheral calcification. Most likely etiology for this finding is meningioma. There is associated mass effect but no midline shift. Recommend MRI brain with and without contrast for further characterization. Ed Guerra MD Cervical Spine CT 02/06/17 0000 Signed Impressions: Service Date/Time: Monday, February 06, 2017 09:59 - CONCLUSION: No evidence of fracture. Multilevel degenerative findings. Ed Guerra MD Objective Remarks GENERAL: This is a well-nourished, well-developed patient, in no apparent distress. CARDIOVASCULAR: Regular rate and regular rhythm without murmurs, gallops, or rubs. RESPIRATORY: Clear to auscultation. Breath sounds equal bilaterally. No wheezes , rales, or rhonchi. GASTROINTESTINAL: Abdomen soft, non-tender, nondistended. Normal, active bowel sounds MUSCULOSKELETAL: left upper extremity covered with clean dressing. NEURO: Alert & Oriented x4 to person, place, time, situation. Moves all ext x4 Procedures ORIF left wrist fracture left bipolar hip arthroplasty Medications and IVs Current Medications Hydromorphone HCl (Dilaudid Pf Inj) 1 mg ONCE ONCE IVS Last administered on 08:30; Start 02/06/17 at 08:30; Stop 02/06/17 at 08:31; Status DC Ondansetron HCl (Zofran Inj) 4 mg ONCE ONCE IV Last administered on 02/06/17 08:30; Start 02/06/17 at 08:30; Stop 02/06/17 at 08:31; Status DC Sodium Chloride (NS Flush) 2 ml UNSCH PRN IVF FLUSH AFTER USING IV ACCESS; Start 02/06/17 at 08:45 Propofol (Diprivan 200 Mg/20 ml Inj) 200 mg ONCE ONCE IV Last administered on 02/06/17 09:00; Start 02/06/17 at 09:00; Stop 02/06/17 at 09:01; Status DC Hydromorphone HCl 1 mg 1 mg ONCE ONCE IVS ; Start 02/06/17 at 10:15; Stop 02/06 at 10:18; Status DC Sodium Chloride (NS 1000 ml Inj) 1,000 ml @ 75 mls/hr [id number] IV Last administered on 02/06/17 17:02; Start 02/06/17 at 11:00; Stop 02/07/17 at 00:52 ; Status DC Hydromorphone HCl (Dilaudid Pf Inj) 0.5 mg Q4H PRN IV PUSH PAIN; Start at 10:15 Ondansetron HCl (Zofran Inj) 4 mg Q8HR PRN IV PUSH NAUSEA; Start 02/06/17 at 10 :15; Stop 02/07/17 at 00:52; Status DC Hydromorphone HCl (Dilaudid Pf Inj) 0.5 mg ONCE ONCE IVS Last administered on 02/06/17 10:30; Start 02/06/17 at 10:30; Stop 02/06/17 at 10:31; Status DC Enalaprilat (Vasotec Inj) 1.25 mg Q8H PRN IV PUSH SBP> OR = 180, DBP> OR = 100 ; Start 02/06/17 at 13:15 Cefazolin Sodium 2000 mg 2,000 mg STK-MED ONCE .ROUTE Last administered on 02/06 21:19; Start 02/06/17 at 19:04; Stop 02/06/17 at 19:05; Status DC Lactated Ringer's 1,000 ml @ 30 mls/hr Q24H IV Last administered on 02/06/17 19:15; Start 02/06/17 at 19:15; Stop 02/07/17 at 00:52; Status DC Sodium Chloride (NS 500 ml Inj) 500 ml @ 30 mls/hr [id number] IV ; Start 02/06/17 at 19:15; Stop 02/07/17 at 00:53; Status DC Insulin Human Regular (NovoLIN R INJ) See Protocol Table ... UNSCH X1 PRN SQ SEE PROTOCOL; Start 02/06/17 at 19:15; Stop 02/07/17 at 00:53; Status DC Metoprolol Tartrate 25 mg 25 mg UNSCH X1 PRN PO SEE LABEL COMMENTS; Start 02/06 at 19:15; Stop 02/07/17 at 00:53; Status DC Cefazolin Sodium/ Dextrose (Ancef 2 Gm Premix) 50 ml @ As Directed STK-MED ONCE .ROUTE Last administered on 02/06/17 20:52; Start 02/06/17 at 20:46; Stop at 20:47; Status DC Gentamicin Sulfate (Gentamicin Inj) 240 mg STK-MED ONCE .ROUTE ; Start 02/06/17 at 22:49; Stop 02/06/17 at 22:50; Status DC Morphine Sulfate (Morphine Inj) 4 mg STK-MED ONCE .ROUTE ; Start 02/06/17 at 22: 50; Stop 02/06/17 at 22:51; Status DC Fentanyl Citrate (fentaNYL INJ) 250 mcg STK-MED ONCE .ROUTE ; Start 02/06/17 at 22:50; Stop 02/06/17 at 22:51; Status DC Gentamicin Sulfate 240 mg 240 mg STK-MED ONCE IRRIGATION Last administered on 22:58; Start 02/06/17 at 22:58; Stop 02/06/17 at 23:03; Status DC Lactated Ringer's (Lr 1000 ml Inj) 1,000 ml @ 80 mls/hr [id number] IV Last administered on 02/08/17 00:38; Start 02/07/17 at 00:41 Sodium Chloride (NS Flush) 2 ml UNSCH PRN IV FLUSH FLUSH AFTER USING IV ACCESS ; Start 02/07/17 at 00:45 Sodium Chloride 2 ml 2 ml BID IV FLUSH Last administered on 02/07/17 20:36; Start 02/07/17 at 09:00 Cefazolin Sodium/ Dextrose (Ancef 2 Gm Premix) 50 ml @ 100 mls/hr Q6H IV ; Start 02/07/17 at 01:00; Stop 02/07/17 at 02:40; Status DC Miscellaneous Information (Post-op Orders (for Pharmacy)) STAT ONCE XX ; Start 02/07/17 at 00:41; Stop 02/07/17 at 00:52; Status DC Rivaroxaban (Xarelto) 10 mg Q24H PO Last administered on 02/08/17 12:58; Start 02/07/17 at 13:00 Morphine Sulfate (Morphine Inj) 4 mg Q3H PRN IV PUSH Pain >7 when off [employer]EC[employer]; Start 02/07/17 at 00:45 Oxycodone/ Acetaminophen (Percocet 5-325 Mg) 1 tab Q4H PRN PO PAIN LESS THAN 5 ON SCALE Last administered on 02/09/17 10:57; Start 02/07/17 at 00:45 Oxycodone/ Acetaminophen (Percocet 5-325 Mg) 2 tab Q4H PRN PO PAIN SCALE 5 TO 10 Last administered on 02/09/17 05:49; Start 02/07/17 at 00:45 Acetaminophen (Tylenol) 650 mg Q6H PRN PO TEMPERATURE > 101 F; Start 02/07/17 at 00:45 Multivitamins/ Minerals Therapeutic (Theragran M Tab) 1 tab BID PO Last administered on 02/09/17 09:20; Start 02/08/17 at 09:00; Stop 04/09/17 at 08:59 Ondansetron HCl (Zofran Inj) 4 mg Q6H PRN IVP NAUSEA OR VOMITING; Start at 00:45 Docusate Sodium (Colace) 100 mg BID PO Last administered on 02/09/17 09:20; Start 02/08/17 at 09:00 Al Hydrox/Mg Hydrox/Simethicone (Mag-Al Plus Susp Liq) 30 ml Q6H PRN PO INDIGESTION; Start 02/07/17 at 00:45 Temazepam (Restoril) 15 mg HS PRN PO SLEEP; Start 02/07/17 at 00:45 Bisacodyl (Dulcolax Supp) 10 mg DAILY PRN IN CONSTIPATION; Start 02/07/17 at 00 :45 Magnesium Hydroxide (Milk Of Magnesia Liq) 30 ml DAILY PRN PO CONSTIPATION Last administered on 02/08/17 08:46; Start 02/07/17 at 00:45 Povidone Iodine (Betadine 10% Top Soln) 30 applic UNSCH X1 PRN TOPICAL WOUND CARE; Start 02/07/17 at 00:45; Stop 02/09/17 at 00:44; Status DC Morphine Sulfate 4 mg 4 mg STK-MED ONCE .ROUTE Last administered on 02/07/17 01:35; Start 02/07/17 at 01:35; Stop 02/07/17 at 01:36; Status DC Cefazolin Sodium/ Dextrose (Ancef 2 Gm Premix) 50 ml @ 100 mls/hr Q6H IV Last administered on 02/07/17 16:10; Start 02/07/17 at 03:00; Stop 02/07/17 at 15:29 ; Status DC Gadodiamide (Omniscan Pf Inj) 13 ml STK-MED ONCE IV Last administered on 09:28; Start 02/07/17 at 09:28; Stop 02/07/17 at 09:29; Status DC Pravastatin Sodium (Pravachol) 40 mg HS PO Last administered on 02/08/17 19:45 ; Start 02/07/17 at 21:00 Lisinopril (Prinivil) 5 mg HS PO ; Start 02/07/17 at 21:00; Stop 02/07/17 at 21: 00; Status DC Lisinopril (Prinivil) 5 mg HS PO Last administered on 02/08/17 19:45; Start at 21:00 A/P Assessment and Plan A/P - left hip and wrist fracture after a fall s/p ORIF left wrist fracture and left bipolar hip arthroplasty. continue with pain control and PT- management per ortho. -large meningioma- neurosurgery consulted and recommended outpatient f/u -[id number]; will monitor for now -hypertension; resumed home meds -dyslipidemia; resumed home meds -DVT prophylaxis- on Xarelto- per ortho Discharge Planning dc to inpatient rehab today. see med list. d/w the patient and family. d/w the RN. f/u with pcp, ortho and neurosurgery upon discharge. Mary Adams MD Feb 09, 2017 11:16
[2017-02-09] MEDS ORDERED: OXYC1TAB63 PO (11:18)
[2017-02-09 11:19] VITALS: BP 105/52; PULSE 80; RESP 17; TEMP 95.4; O2SAT 95
[2017-02-09] MEDS ORDERED: XARE10TA PO (12:02)
--- NOTE | 2017-02-09 13:11 | PD.ORT.PN ---
Subjective Subjective Remarks no c/o of hup, no numbness of fingers on l hand Objective Vitals Vital Signs Date Time Temp Pulse Resp B/P Pulse Ox O2 Delivery O2 Flow Rate FiO2 02/09/17 11:19 95.4 80 17 105/52 95 02/09/17 08:12 98.3 73 18 105/54 94 02/09/17 04:00 98.3 84 16 143/54 97 02/09/17 00:00 98.9 88 17 121/46 95 02/08/17 20:00 98.2 97 16 129/47 96 02/08/17 16:00 98.0 79 18 120/70 97 02/08/17 14:32 18 I/O 02/08/17 02/08/17 02/08/17 02/09/17 02/09/17 02/09/17 07:00 15:00 23:00 07:00 15:00 23:00 Intake Total 240 ml 980 ml 240 ml 240 ml Output Total 1000 ml Balance -760 ml 980 ml 240 ml 240 ml Intake Oral 240 ml 980 ml 240 ml 240 ml Output Urine Total 1000 ml # Voids 3 1 1 # Bowel Movements 0 1 0 Result Diagram: 02/08/17 0612 02/06/17 0840 Imaging Last 48 hours Impressions Wrist X-Ray 02/07/17 0000 Signed Impressions: Service Date/Time: Tuesday, February 07, 2017 00:04 - CONCLUSION: 1. Postoperative fixation distal left radius. Dawson Torres MD Hip X-Ray 02/07/17 0000 Signed Impressions: Service Date/Time: Tuesday, February 07, 2017 01:22 - CONCLUSION: 1. Postoperative left hip replacement. Dawson Torres MD Femur X-Ray 02/06/17 0835 Signed Impressions: Service Date/Time: Monday, February 06, 2017 09:12 - CONCLUSION: Impacted left femoral neck fracture. Ed Guerra MD Chest X-Ray 02/06/17 0835 Signed Impressions: Service Date/Time: Monday, February 06, 2017 10:32 - CONCLUSION: No acute disease. Neftaly Tyson Jr., MD Wrist X-Ray 02/06/17 0000 Signed Impressions: Service Date/Time: Monday, February 06, 2017 10:35 - CONCLUSION: 1. Uncomplicated reduction Yonathan Pereira MD Wrist X-Ray 02/06/17 0000 Signed Impressions: Service Date/Time: Monday, February 06, 2017 09:02 - CONCLUSION: 1. Impacted distal radius fracture with volar angulation of the distal fragment. 2. Nondisplaced, faintly seen distal ulna fracture. Ed Guerra MD Pelvis X-Ray 02/06/17 0000 Signed Impressions: Service Date/Time: Monday, February 06, 2017 09:12 - CONCLUSION: Impacted left femoral neck fracture. Ed Guerra MD Hip X-Ray 02/06/17 0000 Signed Impressions: Service Date/Time: Monday, February 06, 2017 09:12 - CONCLUSION: Left femoral neck fracture. Ed Guerra MD Head CT 02/06/17 0000 Signed Impressions: Service Date/Time: Monday, February 06, 2017 09:59 - CONCLUSION: 4 cm left frontal extra-axial mass with thin peripheral calcification. Most likely etiology for this finding is meningioma. There is associated mass effect but no midline shift. Recommend MRI brain with and without contrast for further characterization. Ed Guerra MD Cervical Spine CT 02/06/17 0000 Signed Impressions: Service Date/Time: Monday, February 06, 2017 09:59 - CONCLUSION: No evidence of fracture. Multilevel degenerative findings. Ed Guerra MD Procedures 1. Left bipolar hip arthroplasty, 2. ORIF left distal radius with volar plating (02/07/17) Objective Remarks LLE: Hip dressing changed. incision has mild serosang drainage. Negative Ebony' s sign. Good cap refill. 2+ pedal pulses. Neurovascular intact. LUE: Sling and sugar tong splint dry and intact. Mod edema noted on all five digits distally. Ecchymosis noted, no change compared pre-operatively. Freely able to move all 5 digits freely. Good cap refill. Neurovascular intact. Assessment & Plan Problem List: (1) Fracture of femoral neck, left, closed (2) Acosta's fracture of distal radius, closed (3) Closed fracture of left distal radius and ulna Assessment and Plan Left bipolar hip arthroplasty, ORIF left distal radius with volar plating POD #2 Ortho status stable. Progress rehab per protocol - W/B as tolerated LLE, non W/ B LUE. Use platform walker for ambulation. Continue Xarelto for DVT prophylaxis (35 days), pain control and bowel regimen. Discharge planning - patient will be ready for d/c to rehab today. Amari RN to d/c sutures and chelita , apply steri stripes. Follow up with orthopedics in 3 weeks. Enrike Shaw MD Feb 09, 2017 13:11
[2017-02-09] MEDS: RIVAROXABAN 10 MG TAB PO SCH (13:16)
[2017-02-21] MEDS ORDERED: THERTAB15 PO (10:37)
[2017-02-21] MEDS ORDERED: LISI-519 PO (10:37)
[2017-02-21] MEDS ORDERED: XARE10TA PO (10:37)
[2017-02-21] MEDS ORDERED: SIMV20TA PO (10:37)
[2017-02-21] MEDS ORDERED: WHEEMIS3 (12:15)
[2017-02-21] MEDS ORDERED: QUAD CANE/SMALL1 MI1 (12:15)
[2017-02-21] MEDS ORDERED: COMMODE 3-IN-11 MIS (12:15)
== END 2017-02-09 14:20 | DRG 470 ==
LOC: NEPC 08:18 → NEDA 10:16 → N06A 16:49
PROVIDERS: ADMIT Internal Medicine; ATTEND Internal Medicine
PROC: 0PSJXZZ Reposition Left Radius, External Approach (ICD-10-PCS; 2017-02-06)
PROC: 0SRS0JA Replacement of Left Hip Joint, Femoral Surface with Synthetic Substitute, Uncemented, Open Approach (ICD-10-PCS; principal; 2017-02-06 20:38)
PROC: 0PSJ04Z Reposition Left Radius with Internal Fixation Device, Open Approach (ICD-10-PCS; 2017-02-06 20:38)
DX: S72.002A Fracture of unspecified part of neck of left femur, initial encounter for closed fracture (principal); D64.9 Anemia, unspecified; S52.562A Barton's fracture of left radius, initial encounter for closed fracture; D32.0 Benign neoplasm of cerebral meninges; S52.602A Unspecified fracture of lower end of left ulna, initial encounter for closed fracture; E78.5 Hyperlipidemia, unspecified; I10 Essential (primary) hypertension; W01.0XXA Fall on same level from slipping, tripping and stumbling without subsequent striking against object, initial encounter; Y92.480 Sidewalk as the place of occurrence of the external cause; Z87.891 Personal history of nicotine dependence
CPT/HCPCS: 25605; 70450; 70553; 71010; 72125; 72170; 73100; 73502; 73551; 76000; 80053; 81001; 85014; 85018; 85025; 85610; 85730; 86850; 86900; 86901; 93005; 94150; 94770; 96374; 96375; 99152; C1713; A9579; C1776; J0690; J1170; J1580; J2270; J2370; J2405; J2710; J3010; J7030; J7120